=== PATIENT | female | born 1990 | race Two or more races ===

== ENCOUNTER → 2016-07-05 | Outpatient (CLI) | payer OTHER ==
--- NOTE | 2016-07-05 14:54 | US ---
EXAMINATION TYPE: US OB <= 14 wk fetus early second trimester DATE OF EXAM: 07/05/2016 2:30 PM COMPARISON: NONE CLINICAL HISTORY: Z36 Confirm Dates. unknown dates EXAM PERFORMED: Transabdominal (TA) EXAM MEASUREMENTS: GESTATIONAL AGE / DATING Physician Established: not established Dates by LMP: (15 weeks/3 days) EDC: 12/24/2016 Dates by First Scan: no prior Dates by Current Scan for: (14 weeks/2 days) EDC: 01/01/2017 MATERNAL ANATOMY Uterus: 13.0 x 7.9 x 8.8 cm Right Ovary: 2.6 x 1.4 x 1.9 cm Left Ovary: 1.8 x 1.6 x 1.6 cm Post CDS / Adnexa: wnl Presence of free fluid: no Presence of corpus luteal cyst: no Presence of subchorionic bleed: no BPD:2.7 cm??? 14 weeks /5days FL:1.6 cm? 14weeks/4days GESTATION / SURVEY CRL: 7.6 (13 weeks/5 days) Heart Rate: 157 bpm Rhythm: Normal IUP: Viable IUP Date of LMP: 03/19/2016 TECHNOLOGIST IMPRESSION: viable IUP,1st scan for EDC Single live intrauterine gestation is confirmed as gestational sac and pole are identified. Yol k sac is not clearly evident. There is no free fluid seen in pelvic cul-de-sac. Both ovaries are seen. No suspicious extraovarian adnexal masses are noted. IMPRESSION: Single live intrauterine gestation is confirmed, mean crown-rump length is 7.6 cm corresponding to 13 weeks 5 day old fetus.
[2016-07-05 15:18] LABS: CH 32.5; CHCM 35.5; HCT 37.3 % (34.0-46.0); HDW 2.64; HGB 12.7 gm/dL (11.4-16.0); MCH 31.3 pg (25.0-35.0); Mean Platelet Volume 7.1; RBC 4.06 m/uL (3.80-5.40); RDW 12.7 % (11.5-15.5); WBC 10.5 k/uL (3.8-10.6)
[2016-07-05 15:30] LABS: Glucose 79 mg/dL (74-99); Non-African American GFR(MDRD) >60 (>60 ml/min/1.73 sqM)
[2016-07-05 16:01] LABS: Hepatitis B Surface Ag Index 0.08
== END | disposition home or self-care (01) ==
LOC: RADUSWWP 14:05
PROVIDERS: ATTEND Obstetrics & Gynecology
DX: Z36 Encounter for antenatal screening of mother (principal); Z3A.14 14 weeks gestation of pregnancy
CPT/HCPCS: 36415; 76801; 82565; 82947; 85027; 86762; 86780; 86850; 86900; 86901; 87340

== ENCOUNTER → 2016-08-09 | Outpatient (CLI) | payer OTHER ==
--- NOTE | 2016-08-10 10:59 | US ---
EXAMINATION TYPE: US OB anatomy transabd DATE OF EXAM: 08/09/2016 5:03 PM COMPARISON: Previous study dated 07/05/2016. HISTORY: O36.62X0 Large for dates second trimester lga TECHNIQUE: Transabdominal (TA) EXAM MEASUREMENTS: GESTATIONAL AGE / DATING Physician Established: (19 weeks/3 days) EDC: 01/01/2017 Dates by LMP: (20 weeks/3 days) EDC: 12/24/2016 Dates by First Scan: (19 weeks/3 days) EDC: 01/01/2017 Dates by Current Scan for: (19 weeks/6 days) EDC:12/27/2016 SURVEY IUP: Single PLACENTA: Anterior PREVIA: No previa PENNIE: 15.3 cm Normal CERVICAL LENGTH (transabdominal: norm > 3.0cm): 3.7 cm BIOMETRY PRESENTATION: Vertex LIE: Oblique BPD: 4.7 cm 20 weeks / 2 days HC: 17.1 cm 19 weeks / 5 days AC: 14.5 cm 19 weeks / 6 days FL: 3.1 cm 19 weeks / 5 days ESTIMATED WEIGHT IN GRAMS: 310 grams ESTIMATED WEIGHT IN LBS/OZS: 0 lbs. 11 oz. WEIGHT PERCENTAGE BASED ON ESTABLISHED DATE: 14 % HC/AC: 1.18 Normal FL/AC: 21 Normal HEART RATE: 139 bpm RHYTHM: Normal ANATOMY SEEN (within normal limits): * Cisterna Magna (< 1.1 cm) 0.5 cm * Nuchal Fold (< 0.6 cm) 0.2 cm * Cerebellum (varies with age) 1.9 cm Midline Falx Cavus Septi Pellucidi Four Chamber Heart Stomach Diaphragm Kidneys (bilateral) Bladder Cord Insert Three Vessel Cord Longitudinal Spine Transverse Spine Legs (bilateral) ANATOMY NOT SEEN: Choroid Plexus (bilateral) Lateral Vent (< 1 cm) Outflow tracts: LVOT/RVOT Situs Nose / Lips Arms (bilateral) IMPRESSION: CAGE FETUS PRESENT IN A VERTEX LIE WITH A GESTATIONAL AGE OF 19 WEEKS 6 DAYS +/- 10 DAYS. ESTIMA GIORGI DATE OF CONFINEMENT BASED ON THIS EXAMINATION IS 12/27/2016. PLEASE NOTE THAT THE ANATOMIC EXAM WAS LIMITED.
== END | disposition home or self-care (01) ==
LOC: RADUSWWP 15:50
PROVIDERS: ATTEND Obstetrics & Gynecology
DX: O36.62X0 Maternal care for excessive fetal growth, second trimester, not applicable or unspecified (principal); Z3A.19 19 weeks gestation of pregnancy
CPT/HCPCS: 76811

== ENCOUNTER → 2016-09-19 | Outpatient (CLI) | payer OTHER ==
--- NOTE | 2016-09-19 08:50 | US ---
EXAMINATION TYPE: US gallbladder DATE OF EXAM: 09/19/2016 8:36 AM COMPARISON: None. CLINICAL HISTORY: RUQ Abd Pain R10.11. Epigastric pain radiating to back EXAM MEASUREMENTS: Liver Length: 13.8 cm Gallbladder Wall: 0.1 cm CHD: 0.4 cm Right Kidney: 11.7 x 4.8 x 4.3 cm Pancreas: echogenic Liver: wnl Gallbladder: multiple mobile echogenic foci Evidence for sonographic Boyd's sign: neg CHD: wnl Right Kidney: wnl Limited views of the pancreas demonstrate echogenicity of the pancreas. This may represent fatty infi ltration. The liver is normal in size without biliary dilatation. There is evidence of cholelithiasis. Gallbladder wall measures 1 mm. Distal common hepatic duct measu res 4 mm. The right kidney is normal. The intrahepatic IVC is unremarkable. IMPRESSION: CHOLELITHIASIS.
[2016-09-19 10:24] LABS: CH 33.6; CHCM 34.3; HCT 33.1 % (34.0-46.0); HGB 11.3 gm/dL (11.4-16.0); MCH 33.5 pg (25.0-35.0); MCHC 34.1 g/dL (31.0-37.0); MCV 98.4 fL (80.0-100.0); Mean Platelet Volume 7.5; RBC 3.36 m/uL (3.80-5.40); RDW 13.4 % (11.5-15.5); WBC 10.1 k/uL (3.8-10.6)
== END | disposition home or self-care (01) ==
LOC: RADUSWWP 08:15
PROVIDERS: ATTEND Obstetrics & Gynecology
DX: K80.20 Calculus of gallbladder without cholecystitis without obstruction (principal)
CPT/HCPCS: 76705; 82950; 85027

== ENCOUNTER → 2016-10-03 | Outpatient (CLI) | payer OTHER ==
[2016-10-03 11:49] LABS: Glucose 3 Hour, Gest 136 mg/dL
== END | disposition home or self-care (01) ==
LOC: LABWHC1 07:26
PROVIDERS: ATTEND Obstetrics & Gynecology
DX: O24.419 Gestational diabetes mellitus in pregnancy, unspecified control (principal); Z3A.00 Weeks of gestation of pregnancy not specified
CPT/HCPCS: 36415; 82951; 82952

== ENCOUNTER 2017-01-02 08:33 | Inpatient (IN) | payer OTHER ==
[2017-01-02] MEDS ORDERED: CARBOPROST TROMETHAMINE 250 MCG/ML 1 ML AMP IM PRN (09:40)
[2017-01-02] MEDS ORDERED: LIDOCAINE 1% (PF) 10 MG/ML (30 ML SDV) SQ PRN (09:40)
[2017-01-02] MEDS ORDERED: METHYLERGONOVINE 0.2 MG/ML 1 ML AMP IM PRN (09:40)
[2017-01-02] MEDS ORDERED: OXYTOCIN 10 UNIT/ML 1 ML VIAL IM PRN (09:40)
[2017-01-02] MEDS ORDERED: TERBUTALINE 1 MG/ML VIAL SQ PRN (09:40)
[2017-01-02] MEDS ORDERED: LACTATED RINGERS 1,000 ML IV SCH (09:45)
[2017-01-02] MEDS ORDERED: OXYTOCIN 20 UNITS/1000 ML NS 1,000 ML IV SCH ×2 (09:45→14:00)
[2017-01-02 10:07] VITALS: BMI 25.2
[2017-01-02 11:02] LABS: Basophils % (A) 0 %; CH 33.2; CHCM 35.6; Eosinophils % (A) 0 %; HCT 37.1 % (34.0-46.0); HDW 2.47; HGB 13.1 gm/dL (11.4-16.0); Luc # (Auto) 0.17; Luc % (Auto) 2; Lymphocytes # (A) 1.4 k/uL (1.0-4.8); Lymphocytes % (A) 14 %; MCH 33.2 pg (25.0-35.0); MCHC 35.4 g/dL (31.0-37.0); MCV 93.7 fL (80.0-100.0); Mean Platelet Volume 9.7; Monocytes # (A) 0.5 k/uL (0-1.0); Monocytes % (A) 5 %; Neutrophils # (A) 7.9 k/uL (1.3-7.7); Neutrophils % (A) 79 %; RBC 3.96 m/uL (3.80-5.40); RDW 13.3 % (11.5-15.5); WBC 9.9 k/uL (3.8-10.6); WBC (Perox) 9.92
--- NOTE | 2017-01-02 12:25 | P.HPOB ---
History of Present Illness H&P Date: 01/02/17 Chief Complaint: normal labor 26 year old presents at 40 weeks 1 day in labor. HEr cervix is 3-4/90/-1 and she is rylie every 2-7 minutes. heart tones 135-140 with moderate variability and reactive. Review of Systems All systems: negative Constitutional: Denies chills, Denies fever Eyes: denies blurred vision, denies pain Ears, nose, mouth and throat: Denies headache, Denies sore throat Cardiovascular: Denies chest pain, Denies shortness of breath Respiratory: Denies cough Gastrointestinal: Denies abdominal pain, Denies diarrhea, Denies nausea, Denies vomiting Genitourinary: Denies dysuria, Denies hematuria Musculoskeletal: Denies myalgias Integumentary: Denies pruritus, Denies rash Neurological: Denies numbness, Denies weakness Psychiatric: Denies anxiety, Denies depression Endocrine: Denies fatigue, Denies weight change Past Medical History Past Medical History: No Reported History Additional Past Medical History / Comment(s): Obstetric history: This is her first and she had care with al since 13 weeks. A+, abs neg, Rub Imm, Treponemal ab neg, Hep B neg. abnormal 1hr, normal 3hr.GBS neg. History of Any Multi-Drug Resistant Organisms: None Reported Past Surgical History: No Surgical Hx Reported Past Anesthesia/Blood Transfusion Reactions: No Reported Reaction Smoking Status: Never smoker Past Alcohol Use History: None Reported Past Drug Use History: None Reported - Past Family History Mother Family Medical History: No Reported History Medications and Allergies Home Medications Medication Instructions Recorded Confirmed Type Pnv,Calcium 72/Iron/Folic Acid 1 tab PO DAILY 01/02/17 01/02/17 History [ Plus Tablet] Allergies Allergy/AdvReac Type Severity Reaction Status Date / Time No Known Allergies Allergy Verified 01/02/17 08:40 Exam Osteopathic Statement: *. No significant issues noted on an osteopathic structural exam other than those noted in the History and Physical/Consult. - Vital Signs Vital signs: Vital Signs Temp Pulse Resp BP 01/02/17 09:42 96.6 F L 75 20 135/86 Intake and Output 01/01/17 01/02/17 01/02/17 22:59 06:59 14:59 Other: Weight 68.946 kg Patient Weight 01/03/17 06:59 Weight 68.946 kg Heart: RRR Lungs: CTAB Abdomen: soft, nontender Extremeties: neg paul's Results Result Diagrams: 01/02/17 09:40 Abnormal Lab Results - Last 24 Hours (Table) 01/02/17 Range/Units 09:40 Neutrophils # 7.9 H (1.3-7.7) k/uL Assessment and Plan (1) Normal labor Status: Acute Plan: 1. admit to family 2. anticipate normal vaginal delivery
--- NOTE | 2017-01-02 12:26 | P.MSEPDOC ---
Presenting Problems - Arrival Data Date of Arrival on Unit: 01/02/17 Time of Arrival on Unit: 08:34 Mode of Transport: Ambulatory - Complaint OB-Reason for Admission/Chief Complaint: Possible Onset of Labor Medical History - Information : 1 Para: 0 Term: 0 : 0 Abortions: Spontaneous or Elective: 0 Number of Living Children: 0 - Gestational Age Expected Date of Delivery: 01/03/17 Gestational Age by HAI (wks/days): 39 Weeks and 6 Days Review of Systems - Review of Systems Constitutional: No problems Breast: No problems ENT: No problems Cardiovascular: No problems Respiratory: No problems Gastrointestinal: No problems Genitourinary: No problems Musculoskeletal: No problems Neurological: No problems Skin: No problems Vital Signs - Temperature Temperature: 96.6 F Temperature Source: Temporal Artery Scan - Pulse Right Sitting Brachial Pulse Rate: 75 Pulse Assessment Method: Palpation - Respirations Respiratory Rate: 20 Oxygen Delivery Method: Room Air - Blood Pressure Right Arm Supine Blood Pressure: 135/86 Blood Pressure Mean: 102 Blood Pressure Source: Automatic Cuff Medical Screen Scoring (Pre) - Cervical Exam Dilation: 1-3 cm = 1 Effacement: More than 50% = 2 Membranes: Intact - Uterine Contractions Frequency: > 5 minutes apart = 1 - Maternal Vital Signs Maternal Temperature: N/A Maternal Blood Pressure: N/A Signs of Preeclampsia: N/A Maternal Respirations: N/A - Maternal Trauma Maternal Trauma: N/A - Assessment Baseline FHR: 125 Heart Rate - NICHD Category: Category I (Normal) = 0 NST: Reactive - Total Score Total Score (Pre): 4 - Level of Risk Level of Risk: Low (0-5) Physician Notification (Pre) - Physician Notified Physician Notified Date: 01/02/17 Physician Notified Time: 09:15 Physician/Practitioner Notifed:: Sorin Spoke With: Sorin New Order Received: Yes - Notification Comment Comment: Admit for labor Disposition - Disposition OB Disposition: Admit Transferred to:: suite 13 I agree with the RN Medical Screening Exam: Yes Risk & Benefit of care provided described in d/c instruction: Yes Diagnosis: ENCOUNTER FOR FULL-TERM UNCOMPLICATED DELIVERY
[2017-01-02] MEDS ORDERED: IBUPROFEN 600 MG TAB PO PRN (13:59)
[2017-01-02] MEDS ORDERED: BENZOCAINE/MENTHOL SPRAY 1 GM/SPRAY AEROSOL TOPICAL PRN (13:59)
[2017-01-02] MEDS ORDERED: diphenhydrAMINE 25 MG CAP PO PRN (13:59)
[2017-01-02] MEDS ORDERED: diphenhydrAMINE 50 MG CAP PO PRN (13:59)
[2017-01-02] MEDS ORDERED: ACETAMINOPHEN TAB 325 MG TAB PO PRN (13:59)
[2017-01-02] MEDS ORDERED: LANOLIN CREAM 5 GM TUBE TOPICAL PRN (13:59)
[2017-01-02] MEDS ORDERED: diphenhydrAMINE 50 MG/ML 1 ML VIAL IVP PRN ×2 (13:59)
[2017-01-02] MEDS ORDERED: WITCH HAZEL 1 EACH MED..PAD TOPICAL PRN (13:59)
[2017-01-02] MEDS ORDERED: ZOLPIDEM 5 MG TAB PO PRN (13:59)
[2017-01-02] MEDS ORDERED: SIMETHICONE 80 MG CHEWABLE PO PRN (13:59)
[2017-01-02] MEDS ORDERED: Acetaminophen-Codeine 300-30mg TAB PO PRN ×2 (13:59)
[2017-01-02] MEDS ORDERED: HYDROCORTISONE 2.5% RECTAL CREAM 30 GM TUBE RECTAL PRN (13:59)
[2017-01-02] MEDS: SENNOSIDES-DOCUSATE SODIUM 1 EACH TAB PO SCH (21:21)
[2017-01-03] MEDS: SENNOSIDES-DOCUSATE SODIUM 1 EACH TAB PO SCH (08:23)
--- NOTE | 2017-01-03 09:13 | P.PROBDLV ---
Vaginal Delivery Note - . Vaginal Delivery Note: 26-year-old presents at 40 weeks and 1 day in active labor. Her cervix is 3-4 centers dilated, 90% effaced, -2 station. She is rylie every 2-7 minutes. heart tones are 140-145 with moderate variability and reactive. Pitocin augmentation was started. Amniotomy performed at 1207, clear fluid noted. Her cervix was completely dilated at 1329. She pushed, delivered a viable female over intact perineum at 1342. Head delivered OA, anterior shoulder delivered gentle downward traction followed by posterior shoulder and rest of body. Nose and mouth bulb suctioned, cord clamped and cut, infant placed on mother's abdomen. Apgars 9, 9, weight 7 lbs. 4 oz. Placenta delivered spontaneously, intact with three-vessel cord at 1345. Vagina, cervix , perineum inspected. Second-degree midline laceration repaired with 3-0 Vicryl. Estimated blood loss 250 mL. Mother and baby in stable condition.
--- NOTE | 2017-01-03 09:15 | P.DS ---
Providers Date of admission: 01/02/17 09:30 Expected date of discharge: 01/03/17 Attending physician: Brigette Rowell - Discharge Diagnosis(es) (1) Normal labor Current Visit: Yes Status: Resolved (2) Normal vaginal delivery Current Visit: Yes Status: Acute Hospital Course: Patient presented and in active labor. She underwent a normal vaginal delivery. She had an uncomplicated course. She'll be discharged home day #1 in stable condition to follow-up with me in 6 weeks. Plan - Discharge Summary New Discharge Prescriptions: New Ibuprofen [Motrin] 600 mg PO Q6HR PRN #30 tab PRN Reason: Mild Pain Or Fever >= 100.5 No Action Pnv,Calcium 72/Iron/Folic Acid [ Plus Tablet] 1 tab PO DAILY Discharge Medication List Pnv,Calcium 72/Iron/Folic Acid [ Plus Tablet] 1 tab PO DAILY 01/02/17 [ History] Ibuprofen [Motrin] 600 mg PO Q6HR PRN #30 tab 01/03/17 [Rx] Follow up Appointment(s)/Referral(s): Brigette Rowell DO [Doctor of Osteopathic Medicine] - 6 Weeks Discharge Disposition: HOME SELF-CARE
[2017-01-03 09:21] VITALS: BP 114/62; PULSE 87; RESP 16; TEMP 98.1
== END 2017-01-03 14:50 | disposition home or self-care (01) | DRG 775 ==
LOC: FBPOP 08:33 → 4FBP 09:30
PROVIDERS: ADMIT Obstetrics & Gynecology; ATTEND Obstetrics & Gynecology
PROC: 10907ZC Drainage of Amniotic Fluid, Therapeutic from Products of Conception, Via Natural or Artificial Opening (ICD-10-PCS; principal; 2017-01-02)
PROC: 10E0XZZ Delivery of Products of Conception, External Approach (ICD-10-PCS; 2017-01-02)
PROC: 0KQM0ZZ Repair Perineum Muscle, Open Approach (ICD-10-PCS; 2017-01-02)
DX: O48.0 Post-term pregnancy (principal); O70.1 Second degree perineal laceration during delivery; Z3A.40 40 weeks gestation of pregnancy; Z37.0 Single live birth
CPT/HCPCS: 59025; 85025; 88307; 99213

== ENCOUNTER 2017-01-20 15:35 | Inpatient (IN) | payer OTHER ==
[2017-01-20] MEDS ORDERED: SODIUM CHLORIDE 0.9% 500 ML IV STA (15:58)
[2017-01-20] MEDS ORDERED: MAG HYDROX/AL HYDROX/SIMETH 30 ML, HYOSCYAMINE ELIXIR 10 ML, CIMETIDINE HCL 300 MG PO STA ×3 (15:58)
[2017-01-20 16:22] LABS: Basophils % (A) 0 %; CH 34.1; CHCM 35.3; Eosinophils # (A) 0.1 k/uL (0-0.7); Eosinophils % (A) 1 %; HCT 38.4 % (34.0-46.0); HDW 2.98; HGB 12.8 gm/dL (11.4-16.0); Luc # (Auto) 0.08; Luc % (Auto) 1; Lymphocytes # (A) 0.9 k/uL (1.0-4.8); Lymphocytes % (A) 9 %; MCH 32.5 pg (25.0-35.0); MCHC 33.4 g/dL (31.0-37.0); MCV 97.2 fL (80.0-100.0); Mean Platelet Volume 7.7; Monocytes # (A) 0.3 k/uL (0-1.0); Monocytes % (A) 4 %; Neutrophils # (A) 8.1 k/uL (1.3-7.7); Neutrophils % (A) 86 %; RBC 3.95 m/uL (3.80-5.40); RDW 14.1 % (11.5-15.5); WBC 9.5 k/uL (3.8-10.6)
--- NOTE | 2017-01-20 16:28 | ED ---
Abdominal Pain HPI <Fabien Tidwell - Last Filed: 01/20/17 18:48> - General Source: patient, RN notes reviewed Mode of arrival: ambulatory Limitations: no limitations <Jonathan Ortiz - Last Filed: 01/20/17 18:51> - General Chief Complaint: Abdominal Pain Stated Complaint: Abd Pain Time Seen by Provider: 01/20/17 15:44 - History of Present Illness Initial Comments: this a 26-year-old female presents emergency Department with chief complaint of abdominal pain. Patient states the pain sstarted this morning. Patient states she has right upper to mid abdominal pain states radiates to her shoulder. Patient states she's been diagnosed with gallstones in the past. She states that she is 2 weeks . Denies any increased vaginal bleeding or vaginal discharge. Denies any dysuria or hematuria. She states that she has some nausea no vomiting. She did have heartburn throughout her but states that has improved since delivering. (Jonathan Ortiz) - Related Data Home Medications Medication Instructions Recorded Confirmed Vtx-Ljah-Stzkc Acid 1 cap PO HS 01/20/17 01/20/17 [-U Capsule (formulary)] Allergies Allergy/AdvReac Type Severity Reaction Status Date / Time No Known Allergies Allergy Verified 01/20/17 16:07 Review of Systems ROS Other: All systems not noted in ROS Statement are negative. <Fabien Tidwell - Last Filed: 01/20/17 18:48> ROS Other: All systems not noted in ROS Statement are negative. <Jonathan Ortiz - Last Filed: 01/20/17 18:51> ROS Statement: Those systems with pertinent positive or pertinent negative responses have been documented in the HPI. Past Medical History Past Medical History: No Reported History Additional Past Medical History / Comment(s): Obstetric history: This is her first and she had care with me since 13 weeks. A+, abs neg, Rub Imm, Treponemal ab neg, Hep B neg. abnormal 1hr, normal 3hr.GBS neg. History of Any Multi-Drug Resistant Organisms: None Reported Past Surgical History: No Surgical Hx Reported Past Anesthesia/Blood Transfusion Reactions: No Reported Reaction Past Psychological History: No Psychological Hx Reported Smoking Status: Never smoker Past Alcohol Use History: None Reported Past Drug Use History: None Reported - Past Family History Mother Family Medical History: No Reported History <Jonathan Ortiz - Last Filed: 01/20/17 18:51> General Exam Limitations: no limitations General appearance: alert, in no apparent distress Head exam: Present: atraumatic, normocephalic, normal inspection Respiratory exam: Present: normal lung sounds bilaterally. Absent: respiratory distress, wheezes, rales, rhonchi, stridor Cardiovascular Exam: Present: regular rate, normal rhythm, normal heart sounds. Absent: systolic murmur, diastolic murmur, rubs, gallop, clicks GI/Abdominal exam: Present: soft, tenderness (mild epigastric, right upper quadrant tenderness), normal bowel sounds. Absent: distended, guarding, rebound , rigid Back exam: Absent: CVA tenderness (R), CVA tenderness (L) Neurological exam: Present: alert, oriented X3, CN II-XII intact Skin exam: Present: warm, dry, intact, normal color. Absent: rash <Jonathan Ortiz Elvis - Last Filed: 01/20/17 18:51> Medical Decision Making - Lab Data Result diagrams: 01/20/17 16:09 01/20/17 16:09 <Fabien Tidwell - Last Filed: 01/20/17 18:48> - Lab Data Result diagrams: 01/20/17 16:09 01/20/17 16:09 <AngelJonathan Elvis - Last Filed: 01/20/17 18:51> - Medical Decision Making Case discussed with Dr. Manzano, who will admit for Dr. Smalls. Consult for Dr. Forte. (Fabien Tidwell) - Lab Data Lab Results 01/20/17 01/20/17 01/20/17 Range/Units 16:09 16:09 16:09 WBC 9.5 (3.8-10.6) k/uL RBC 3.95 (3.80-5.40) m/uL Hgb 12.8 (11.4-16.0) gm/dL Hct 38.4 (34.0-46.0) % MCV 97.2 (80.0-100.0) fL MCH 32.5 (25.0-35.0) pg MCHC 33.4 (31.0-37.0) g/dL RDW 14.1 (11.5-15.5) % Plt Count 275 (150-450) k/uL Neutrophils % 86 % Lymphocytes % 9 % Monocytes % 4 % Eosinophils % 1 % Basophils % 0 % Neutrophils # 8.1 H (1.3-7.7) k/uL Lymphocytes # 0.9 L (1.0-4.8) k/uL Monocytes # 0.3 (0-1.0) k/uL Eosinophils # 0.1 (0-0.7) k/uL Basophils # 0.0 (0-0.2) k/uL Sodium 142 (137-145) mmol/L Potassium 3.9 (3.5-5.1) mmol/L Chloride 106 (98-107) mmol/L Carbon Dioxide 25 (22-30) mmol/L Anion Gap 11 mmol/L BUN 9 (7-17) mg/dL Creatinine 0.70 (0.52-1.04) mg/dL Est GFR (MDRD) Af Amer >60 (>60 ml/min/1.73 sqM) Est GFR (MDRD) Non-Af >60 (>60 ml/min/1.73 sqM) Glucose 98 (74-99) mg/dL Calcium 9.4 (8.4-10.2) mg/dL Total Bilirubin 0.7 (0.2-1.3) mg/dL AST 116 H (14-36) U/L ALT 77 H (9-52) U/L Alkaline Phosphatase 108 (38-126) U/L Total Protein 7.1 (6.3-8.2) g/dL Albumin 4.2 (3.5-5.0) g/dL Amylase 155 H (30-110) U/L Lipase 866 H (23-300) U/L Urine Color Yellow Urine Appearance Clear (Clear) Urine pH 6.0 (5.0-8.0) Ur Specific [place] 1.021 (1.001-1.035) Urine Protein Trace H (Negative) Urine Glucose (UA) Negative (Negative) Urine Ketones Negative (Negative) Urine Blood Small H (Negative) Urine Nitrite Negative (Negative) Urine Bilirubin Negative (Negative) Urine Urobilinogen 3.0 (<2.0) mg/dL Ur Leukocyte Esterase Large H (Negative) Urine RBC 8 H (0-5) /hpf Urine WBC 23 H (0-5) /hpf Ur Squamous Epith Cells <1 (0-4) /hpf Urine Mucus Rare H (None) /hpf Disposition <Fabien Tidwell - Last Filed: 01/20/17 18:48> <Jonathan Ortiz - Last Filed: 01/20/17 18:51> Clinical Impression: UTI (urinary tract infection), Choledocholithiasis, Pancreatitis Disposition: ADMITTED IP TO THIS HOSP Condition: Fair Referrals: Win Mclaughlin DO [Primary Care Provider] - 1-2 days
[2017-01-20 16:29] LABS: Appearance,Urine Clear (Clear); Bilirubin,Urine Negative (Negative); Glucose,Urine (UA) Negative (Negative); Ketones,Urine Negative (Negative); Leukocyte Esterase,Urine Large (Negative); Mucus,Urine Rare /hpf; Nitrite,Urine Negative (Negative); Particle Count 2859; Protein,Urine Trace (Negative); RBC,Urine 8 /hpf (0-5); Specific Gravity,Urine 1.021 (1.001-1.035); Squamous Epithelial Cell,Urine <1 /hpf (0-4); UA Billing (MACRO vs. MICRO) MICRO; WBC,Urine 23 /hpf (0-5)
[2017-01-20 16:32] LABS: AST 116 U/L (14-36); Anion Gap 11 mmol/L; Blood Urea Nitrogen 9 mg/dL (7-17); Calcium 9.4 mg/dL (8.4-10.2); Carbon Dioxide 25 mmol/L (22-30); Chloride 106 mmol/L (98-107); Glucose 98 mg/dL (74-99); Non-African American GFR(MDRD) >60 (>60 ml/min/1.73 sqM); Potassium 3.9 mmol/L (3.5-5.1); Sodium 142 mmol/L (137-145); Total Bilirubin 0.7 mg/dL (0.2-1.3); Total Protein 7.1 g/dL (6.3-8.2)
[2017-01-20 16:33] LABS: ALT 77 U/L (9-52); Alkaline Phosphatase 108 U/L (38-126); Amylase 155 U/L (30-110)
--- NOTE | 2017-01-20 16:47 | XR ---
EXAMINATION TYPE: XR KUB DATE OF EXAM: 01/20/2017 COMPARISON: NONE HISTORY: Abdominal pain TECHNIQUE: 2 views FINDINGS: There is no sign of intestinal obstruction or pneumoperitoneum. Fecal pattern is normal. Th ere are no pathologic calcifications. Lung bases are clear. There is no sign of a mass. Bony structur es appear normal. IMPRESSION: Nonacute abdomen.
--- NOTE | 2017-01-20 18:20 | US ---
EXAMINATION TYPE: US abdomen limited DATE OF EXAM: 01/20/2017 COMPARISON: US CLINICAL HISTORY: Pain. EXAM MEASUREMENTS: Liver Length: 12.8 cm Gallbladder Wall: 0.3 cm CBD: 0.4 cm Right Kidney: 12.2 x 4.8 x 4.0 cm Pancreas: partially obscured by bowel gas Liver: wnl Gallbladder:cholethiasis Evidence for sonographic Boyd's sign: No CBD: wnl Right Kidney: wnl IMPRESSION: Numerous gallstones. No dilated ducts. No focal liver defect.
[2017-01-20] MEDS ORDERED: PIPERACILLIN-TAZOBACTAM 3.375 GM in DEXTROSE/WATER 1 50ML.BAG IVPB STA (18:50)
[2017-01-20] MEDS ORDERED: NALOXONE 0.4 MG/ML 1 ML VIAL IV PRN (18:52)
[2017-01-20] MEDS ORDERED: ONDANSETRON 4 MG/2 ML VIAL IVP PRN (18:52)
[2017-01-20] MEDS ORDERED: HYDROcodone/APAP 5-325MG 1 EACH TAB PO PRN (18:52)
[2017-01-20] MEDS ORDERED: SODIUM CHLORIDE 0.9% 1,000 ML IV SCH (19:00)
[2017-01-20 21:06] VITALS: BMI 21.4
[2017-01-21] MEDS: PIPERACILLIN-TAZOBACTAM 3.375 GM in DEXTROSE/WATER 1 50ML.BAG IVPB SCH ×3 (00:49→17:07)
[2017-01-21 07:34] LABS: Cholesterol 176 mg/dL (<200); HDL Cholesterol 46 mg/dL (40-60)
[2017-01-21] MEDS: SODIUM CHLORIDE 0.9% 1,000 ML IV SCH ×2 (15:06→22:24)
[2017-01-21] MEDS: PANTOPRAZOLE 40 MG/10 ML VIAL IVP SCH ×2 (15:13→22:20)
--- NOTE | 2017-01-21 15:36 | P.GSCN ---
History of Present Illness Consult date: 01/21/17 Reason for Consult: Gallstone pancreatitis History of present illness: Patient is admitted to the hospital with abdominal pain. Pain was in the midepigastric region with radiation of back and shoulders. She had a history of a similar event in August of this year. She was told in the past that she has gallstones. No nausea or vomiting. Pain is since resolved. Her ALT and AST are elevated in addition to her amylase and lipase. These labs were not repeated today. An ultrasound showed gallstones without biliary dilation. No change in the color of her skin urine or stool. She is hungry. She just delivered a baby 2-3 weeks ago. Denies rectal bleeding or melena. Review of Systems The patient denies any acute changes in vision or hearing, no dysphagia or odynophagia, no chest pain or shortness of breath, no dysuria or hematuria, no headache, no runny nose, no rectal bleeding or melena, no unexplained weight loss Past Medical History Past Medical History: No Reported History Additional Past Medical History / Comment(s): Obstetric history: This is her first and she had care with ia since 13 weeks. A+, abs neg, Rub Imm, Treponemal ab neg, Hep B neg. abnormal 1hr, normal 3hr.GBS neg. History of Any Multi-Drug Resistant Organisms: None Reported Past Surgical History: No Surgical Hx Reported Past Anesthesia/Blood Transfusion Reactions: No Reported Reaction Past Psychological History: No Psychological Hx Reported Smoking Status: Never smoker Past Alcohol Use History: None Reported Past Drug Use History: None Reported - Past Family History Mother Family Medical History: No Reported History Medications and Allergies Home Medications Medication Instructions Recorded Confirmed Type Bnr-Aeho-Woaop Acid 1 cap PO HS 01/20/17 01/20/17 History [-U Capsule (formulary)] Allergies Allergy/AdvReac Type Severity Reaction Status Date / Time No Known Allergies Allergy Verified 01/20/17 21:07 Surgical - Exam Vital Signs Temp Pulse Resp BP Pulse Ox 97.8 F 73 18 131/75 99 01/20/17 15:38 01/20/17 15:38 01/20/17 15:38 01/20/17 15:38 01/20/17 15:38 Physical exam: General: Well-developed, well-nourished HEENT: Normocephalic, sclerae nonicteric Abdomen: Nontender, nondistended Extremities: No edema Neuro: Alert and oriented Results - Labs 01/20/17 16:09 01/20/17 16:09 Abnormal Lab Results - Last 24 Hours (Table) 01/20/17 01/20/17 01/20/17 Range/Units 16:09 16:09 16:09 Neutrophils # 8.1 H (1.3-7.7) k/uL Lymphocytes # 0.9 L (1.0-4.8) k/uL AST 116 H (14-36) U/L ALT 77 H (9-52) U/L Triglycerides (<150) mg/dL Amylase 155 H (30-110) U/L Lipase 866 H (23-300) U/L Urine Protein Trace H (Negative) Urine Blood Small H (Negative) Ur Leukocyte Esterase Large H (Negative) Urine RBC 8 H (0-5) /hpf Urine WBC 23 H (0-5) /hpf Urine Mucus Rare H (None) /hpf 01/21/17 Range/Units 06:53 Neutrophils # (1.3-7.7) k/uL Lymphocytes # (1.0-4.8) k/uL AST (14-36) U/L ALT (9-52) U/L Triglycerides 170 H (<150) mg/dL Amylase (30-110) U/L Lipase (23-300) U/L Urine Protein (Negative) Urine Blood (Negative) Ur Leukocyte Esterase (Negative) Urine RBC (0-5) /hpf Urine WBC (0-5) /hpf Urine Mucus (None) /hpf Microbiology - Last 24 Hours (Table) 01/20/17 16:09 Urine Culture - Preliminary Urine,Clean Catch Diabetes panel 01/20/17 01/21/17 Range/Units 16:09 06:53 Sodium 142 (137-145) mmol/L Potassium 3.9 (3.5-5.1) mmol/L Chloride 106 (98-107) mmol/L Carbon Dioxide 25 (22-30) mmol/L BUN 9 (7-17) mg/dL Creatinine 0.70 (0.52-1.04) mg/dL Glucose 98 (74-99) mg/dL Calcium 9.4 (8.4-10.2) mg/dL AST 116 H (14-36) U/L ALT 77 H (9-52) U/L Alkaline Phosphatase 108 (38-126) U/L Total Protein 7.1 (6.3-8.2) g/dL Albumin 4.2 (3.5-5.0) g/dL Triglycerides 170 H (<150) mg/dL HDL Cholesterol 46 (40-60) mg/dL Calcium panel 01/20/17 Range/Units 16:09 Calcium 9.4 (8.4-10.2) mg/dL Albumin 4.2 (3.5-5.0) g/dL Pituitary panel 01/20/17 Range/Units 16:09 Sodium 142 (137-145) mmol/L Potassium 3.9 (3.5-5.1) mmol/L Chloride 106 (98-107) mmol/L Carbon Dioxide 25 (22-30) mmol/L BUN 9 (7-17) mg/dL Creatinine 0.70 (0.52-1.04) mg/dL Glucose 98 (74-99) mg/dL Calcium 9.4 (8.4-10.2) mg/dL Adrenal panel 01/20/17 Range/Units 16:09 Sodium 142 (137-145) mmol/L Potassium 3.9 (3.5-5.1) mmol/L Chloride 106 (98-107) mmol/L Carbon Dioxide 25 (22-30) mmol/L BUN 9 (7-17) mg/dL Creatinine 0.70 (0.52-1.04) mg/dL Glucose 98 (74-99) mg/dL Calcium 9.4 (8.4-10.2) mg/dL Total Bilirubin 0.7 (0.2-1.3) mg/dL AST 116 H (14-36) U/L ALT 77 H (9-52) U/L Alkaline Phosphatase 108 (38-126) U/L Total Protein 7.1 (6.3-8.2) g/dL Albumin 4.2 (3.5-5.0) g/dL Assessment and Plan Plan: Impression: Gallstone pancreatitis next Plan: We'll repeat lab work tomorrow. Begin diet at this time. If the patient' s labs are improved we'll consider laparoscopic cholecystectomy tomorrow. Continue empiric anabiotic.
--- NOTE | 2017-01-21 15:44 | P.HPIM ---
History of Present Illness Chief Complaint: epigastric pain 26 years old female 2 weeks presents with acute abdominal pain that started yesterday involving the right upper quadrant and the epigastric area. Patient said that she had similar presentation while she was but could not undergo any surgery due to the . She had similar symptoms 2 days ago but went away by itself. She was diagnosed to have gallstones during her . Patient denies any nausea, vomiting, diarrhea or constipation. Denies any blood in stool. No change in stool, had her last bowel movement yesterday stopped she does uses Prilosec [id number] which has helped with her abdominal pain and had an ibuprofen for headache on Saturday but apart from that she is on no medication. She denies any chest pain or shortness of breath but could not to 3 due to the epigastric pain she was having. She denies any palpitation or lower extremity edema, patient denies any history of blood clots in the past Review of Systems Constitutional: Denies chills, Denies fever, Denies malaise, Denies night sweats , Denies poor appetite Eyes: denies blurred vision, denies bulging eye, denies discharge Ears: deny: ear discharge Ears, nose, mouth and throat: Denies bleeding gums, Denies headache, Denies nasal discharge Cardiovascular: Reports as per HPI, Reports shortness of breath, Denies lightheadedness, Denies orthopnea, Denies rapid heart beat Respiratory: Denies cough with sputum Gastrointestinal: Reports abdominal pain, Denies belching, Denies bloating, Denies BRBPR, Denies change in bowel habits, Denies coffee ground emesis, Denies constipation, Denies diarrhea, Denies early satiety, Denies heartburn, Denies hematochezia, Denies jaundice, Denies nausea, Denies vomiting Genitourinary: Denies flank pain, Denies kidney stones Musculoskeletal: Denies neck pain, Denies neck stiffness Integumentary: Denies dryness, Denies growths, Denies lesions Neurological: Denies headaches, Denies lack of coordination, Denies loss of vision, Denies memory loss, Denies motor disturbance, Denies numbness, Denies seizures Endocrine: Denies excessive sweating, Denies fatigue, Denies flushing, Denies heat intolerance, Denies high blood sugars Past Medical History Past Medical History: No Reported History (normal vaginal delivery 2 weeks ago ) Additional Past Medical History / Comment(s): Obstetric history: This is her first and she had care with me since 13 weeks. A+, abs neg, Rub Imm, Treponemal ab neg, Hep B neg. abnormal 1hr, normal 3hr.GBS neg. History of Any Multi-Drug Resistant Organisms: None Reported Past Surgical History: No Surgical Hx Reported Past Anesthesia/Blood Transfusion Reactions: No Reported Reaction Past Psychological History: No Psychological Hx Reported Smoking Status: Never smoker Past Alcohol Use History: None Reported Past Drug Use History: None Reported - Past Family History Mother Family Medical History: No Reported History Father Family Medical History: Hypertension (patient has 3 sibling, all doing well . Grandfather had a history of prostate cancer and grandmother with diabetes) Medications and Allergies Home Medications Medication Instructions Recorded Confirmed Type Bqr-Uwoc-Bcoxe Acid 1 cap PO HS 01/20/17 01/20/17 History [-U Capsule (formulary)] Allergies Allergy/AdvReac Type Severity Reaction Status Date / Time No Known Allergies Allergy Verified 01/20/17 21:07 Physical Exam Vitals: Vital Signs Temp Pulse Pulse Pulse Resp BP BP 01/21/17 12:04 97.7 F 57 L 20 123/79 01/21/17 08:10 98.9 F 65 20 124/75 01/21/17 00:49 98.6 F 62 14 116/71 01/20/17 20:45 97.7 F 57 L 20 130/75 01/20/17 19:14 97.8 F 60 18 126/78 01/20/17 19:06 60 18 126/78 01/20/17 17:30 65 18 117/63 01/20/17 15:42 73 18 119/72 01/20/17 15:38 97.8 F 73 18 131/75 Pulse Ox 01/21/17 12:04 99 01/21/17 08:10 99 01/21/17 00:49 98 01/20/17 20:45 100 01/20/17 19:14 98 01/20/17 19:06 98 01/20/17 17:30 99 01/20/17 15:42 97 01/20/17 15:38 99 Intake and Output 01/21/17 01/21/17 01/21/17 06:59 14:59 22:59 Other: # Voids 1 2 - Constitutional General appearance: average body habitus, cooperative - EENT Eyes: no abnormal pupil, PERRLA, no photophobia, no ptosis Ears: bilateral: normal - Neck Neck: no lymphadenopathy, no normal ROM Carotids: bilateral: upstroke normal Thyroid: negative: normal size - Respiratory Respiratory: bilateral: CTA, negative: rhonchi, wheezing - Cardiovascular Rhythm: regular Heart sounds: normal: S1, S2 Abnormal Heart Sounds: no systolic murmur, no diastolic murmur - Gastrointestinal General gastrointestinal: normal bowel sounds, no organomegaly, soft, no splenomegaly, tenderness Localized gastrointestinal: tender: RUQ, epigastric periumbilical - Integumentary Integumentary: no calor, no cellulitis, no cyanotic - Neurologic Neurologic: CNII-XII intact - Musculoskeletal Musculoskeletal: gait normal - Psychiatric Psychiatric: A&O x's 3, appropriate affect (he) Results CBC & Chem 7: 01/20/17 16:09 01/20/17 16:09 Labs: Abnormal Lab Results - Last 24 Hours (Table) 01/20/17 01/20/17 01/20/17 Range/Units 16:09 16:09 16:09 Neutrophils # 8.1 H (1.3-7.7) k/uL Lymphocytes # 0.9 L (1.0-4.8) k/uL AST 116 H (14-36) U/L ALT 77 H (9-52) U/L Triglycerides (<150) mg/dL Amylase 155 H (30-110) U/L Lipase 866 H (23-300) U/L Urine Protein Trace H (Negative) Urine Blood Small H (Negative) Ur Leukocyte Esterase Large H (Negative) Urine RBC 8 H (0-5) /hpf Urine WBC 23 H (0-5) /hpf Urine Mucus Rare H (None) /hpf 01/21/17 Range/Units 06:53 Neutrophils # (1.3-7.7) k/uL Lymphocytes # (1.0-4.8) k/uL AST (14-36) U/L ALT (9-52) U/L Triglycerides 170 H (<150) mg/dL Amylase (30-110) U/L Lipase (23-300) U/L Urine Protein (Negative) Urine Blood (Negative) Ur Leukocyte Esterase (Negative) Urine RBC (0-5) /hpf Urine WBC (0-5) /hpf Urine Mucus (None) /hpf Microbiology - Last 24 Hours (Table) 01/20/17 16:09 Urine Culture - Preliminary Urine,Clean Catch Thrombosis Risk Factor Assmnt - Choose All That Apply Any of the Below Risk Factors Present?: Yes Each Factor Represents 1 point: or Other Risk Factors: No Other congenital or acquired thrombophilia - If yes, enter type in comment: No Thrombosis Risk Factor Assessment Total Risk Factor Score: 1 Thrombosis Risk Factor Assessment Level: Low Risk Assessment and Plan Plan: 26 years old female with no significant past medical history 2 weeks presents with epigastric pain concerning for acute pancreatitis secondary to choledocholithiasis 1. Acute pancreatitis secondary to choledocholithiasis - Ultrasound suggestive of choledocholithiasis - Keep nothing by mouth - Continue fluid at 1 25 mL per hour - Avoid ibuprofen for concern of acute gastritis - Continue Protonix 40 mg twice a day a day - Surgery consult for possible cholecystectomy while patient is in the hospital - Repeat lipase in a.m. - We will start patient on clear liquid diet - Continue empiric antibiotics with Zosyn 2. GI prophylaxis - Protonix 40 mg twice daily 3. DVT prophylaxis- continue mechanical prophylaxis with GIORGI hose
[2017-01-21] MEDS: PRENATAL VIT-IRON-FOLIC ACID 1 EACH CAP PO SCH (22:20)
[2017-01-22] MEDS: PIPERACILLIN-TAZOBACTAM 3.375 GM in DEXTROSE/WATER 1 50ML.BAG IVPB SCH ×3 (00:22→15:48)
[2017-01-22] MEDS: SODIUM CHLORIDE 0.9% 1,000 ML IV SCH ×5 (06:08→20:47)
[2017-01-22 08:17] LABS: ALT 66 U/L (9-52); AST 32 U/L (14-36); Alkaline Phosphatase 95 U/L (38-126); Amylase 208 U/L (30-110); Anion Gap 9 mmol/L; Blood Urea Nitrogen 4 mg/dL (7-17); Calcium 8.7 mg/dL (8.4-10.2); Carbon Dioxide 27 mmol/L (22-30); Chloride 107 mmol/L (98-107); Glucose 88 mg/dL (74-99); Non-African American GFR(MDRD) >60 (>60 ml/min/1.73 sqM); Potassium 3.5 mmol/L (3.5-5.1); Sodium 143 mmol/L (137-145); Total Bilirubin 0.7 mg/dL (0.2-1.3); Total Protein 6.3 g/dL (6.3-8.2)
[2017-01-22 08:30] LABS: Basophils % (A) 1 %; CH 32.9; CHCM 34.1; Eosinophils # (A) 0.1 k/uL (0-0.7); Eosinophils % (A) 3 %; HDW 3.03; HGB 12.8 gm/dL (11.4-16.0); Luc % (Auto) 2; Lymphocytes # (A) 1.7 k/uL (1.0-4.8); Lymphocytes % (A) 34 %; MCH 33.6 pg (25.0-35.0); MCHC 34.7 g/dL (31.0-37.0); MCV 96.9 fL (80.0-100.0); Mean Platelet Volume 6.9; Monocytes # (A) 0.3 k/uL (0-1.0); Monocytes % (A) 6 %; Neutrophils # (A) 2.7 k/uL (1.3-7.7); Neutrophils % (A) 55 %; RBC 3.83 m/uL (3.80-5.40); RDW 13.5 % (11.5-15.5)
[2017-01-22] MEDS: PANTOPRAZOLE 40 MG/10 ML VIAL IVP SCH ×2 (09:30→20:49)
[2017-01-22] MEDS ORDERED: SODIUM CHLORIDE 0.9% 2,000 ML IV ONE (11:17)
--- NOTE | 2017-01-22 12:44 | P.GSCN ---
History of Present Illness Consult date: 01/22/17 Reason for Consult: Cholelithiasis History of present illness: This a 18-year-old female who sees Dr. ibarra as outpatient. Patient was admitted with complaints of right upper quadrant pain H her back. Ultrasound shows evidence of cholelithiasis. Patient states that she has had some mild complaints of upper quadrant pain over the last several months. She is 3 weeks . She was worked up emergency room found evidence of a urinary tract infection. Past Medical History Past Medical History: No Reported History (normal vaginal delivery 2 weeks ago ) Additional Past Medical History / Comment(s): Obstetric history: This is her first and she had care with [facility] since 13 weeks. A+, abs neg, Rub Imm, Treponemal ab neg, Hep B neg. abnormal 1hr, normal 3hr.GBS neg. History of Any Multi-Drug Resistant Organisms: None Reported Past Surgical History: No Surgical Hx Reported Past Anesthesia/Blood Transfusion Reactions: No Reported Reaction Past Psychological History: No Psychological Hx Reported Smoking Status: Never smoker Past Alcohol Use History: None Reported Past Drug Use History: None Reported - Past Family History Mother Family Medical History: No Reported History Father Family Medical History: Hypertension (patient has 3 sibling, all doing well . Grandfather had a history of prostate cancer and grandmother with diabetes) Medications and Allergies Home Medications Medication Instructions Recorded Confirmed Type Rtc-Ehmh-Urlfk Acid 1 cap PO HS 01/20/17 01/20/17 History [-U Capsule (formulary)] Allergies Allergy/AdvReac Type Severity Reaction Status Date / Time No Known Allergies Allergy Verified 01/20/17 21:07 Surgical - Exam Vital Signs Temp Pulse Resp BP Pulse Ox 97.8 F 73 18 131/75 99 01/20/17 15:38 01/20/17 15:38 01/20/17 15:38 01/20/17 15:38 01/20/17 15:38 - General well developed, no distress - Eyes PERRL - ENT normal pinna - Neck no masses - Respiratory normal expansion - Cardiovascular Rhythm: regular - Abdomen Abdomen: soft, non tender Results - Labs 01/22/17 07:34 01/22/17 07:34 Abnormal Lab Results - Last 24 Hours (Table) 01/22/17 Range/Units 07:34 BUN 4 L (7-17) mg/dL ALT 66 H (9-52) U/L Amylase 208 H (30-110) U/L Lipase 1200 H (23-300) U/L Microbiology - Last 24 Hours (Table) 01/20/17 19:04 Blood Culture - Preliminary Blood No Growth after 24 hours 01/20/17 16:09 Urine Culture - Final Urine,Clean Catch Diabetes panel 01/22/17 Range/Units 07:34 Sodium 143 (137-145) mmol/L Potassium 3.5 (3.5-5.1) mmol/L Chloride 107 (98-107) mmol/L Carbon Dioxide 27 (22-30) mmol/L BUN 4 L (7-17) mg/dL Creatinine 0.74 (0.52-1.04) mg/dL Glucose 88 (74-99) mg/dL Calcium 8.7 (8.4-10.2) mg/dL AST 32 (14-36) U/L ALT 66 H (9-52) U/L Alkaline Phosphatase 95 (38-126) U/L Total Protein 6.3 (6.3-8.2) g/dL Albumin 3.6 (3.5-5.0) g/dL Calcium panel 01/22/17 Range/Units 07:34 Calcium 8.7 (8.4-10.2) mg/dL Albumin 3.6 (3.5-5.0) g/dL Pituitary panel 01/22/17 Range/Units 07:34 Sodium 143 (137-145) mmol/L Potassium 3.5 (3.5-5.1) mmol/L Chloride 107 (98-107) mmol/L Carbon Dioxide 27 (22-30) mmol/L BUN 4 L (7-17) mg/dL Creatinine 0.74 (0.52-1.04) mg/dL Glucose 88 (74-99) mg/dL Calcium 8.7 (8.4-10.2) mg/dL Adrenal panel 01/22/17 Range/Units 07:34 Sodium 143 (137-145) mmol/L Potassium 3.5 (3.5-5.1) mmol/L Chloride 107 (98-107) mmol/L Carbon Dioxide 27 (22-30) mmol/L BUN 4 L (7-17) mg/dL Creatinine 0.74 (0.52-1.04) mg/dL Glucose 88 (74-99) mg/dL Calcium 8.7 (8.4-10.2) mg/dL Total Bilirubin 0.7 (0.2-1.3) mg/dL AST 32 (14-36) U/L ALT 66 H (9-52) U/L Alkaline Phosphatase 95 (38-126) U/L Total Protein 6.3 (6.3-8.2) g/dL Albumin 3.6 (3.5-5.0) g/dL Assessment and Plan Plan: Cholelithiasis with history of choledocholithiasis. Patient has been treated for her urinary tract infection. She'll undergo laparoscopic cholecystectomy in the a.m.
--- NOTE | 2017-01-22 14:53 | P.PN ---
Subjective 26 years old female 2 weeks presents with acute abdominal pain that started yesterday involving the right upper quadrant and the epigastric area. Patient said that she had similar presentation while she was but could not undergo any surgery due to the . She had similar symptoms 2 days ago but went away by itself. She was diagnosed to have gallstones during her . Patient denies any nausea, vomiting, diarrhea or constipation. Denies any blood in stool. No change in stool, had her last bowel movement yesterday stopped she does uses Prilosec [id number] which has helped with her abdominal pain and had an ibuprofen for headache on Saturday but apart from that she is on no medication. She denies any chest pain or shortness of breath but could not to 3 due to the epigastric pain she was having. She denies any palpitation or lower extremity edema, patient denies any history of blood clots in the past 01/22: She has been seen by Dr. Koo and diet was started. If lab work is improved he is planning for laparoscopic cholecystectomy today. Patient is on IV antibiotics. AST is normal at 32 and ALT is 66. Triglycerides 170, cholesterol 176, LDL 96, HDL 46. Amylase has increased to 208 and lipase is increased to 1200. Dr. Koo has decided no surgery for today. Surgery consult has been changed to Dr. Berg and he is planning for surgery tomorrow. IV fluids increased and patient will be given 2 L and then 150 mL per hour. Patient denies any nausea. Objective - Vital Signs Vital signs: Vital Signs Temp 97.0 F L 01/22/17 08:35 Pulse 59 L 01/22/17 08:35 Resp 20 01/22/17 08:35 BP 142/83 01/22/17 08:35 Pulse Ox 95 01/22/17 08:35 Intake & Output 01/21/17 01/22/17 01/22/17 18:59 06:59 18:59 Intake Total 1900 Balance 1900 Intake: Intake, IV Titration 1900 Amount Sodium Chloride 0.9% 1, 1900 000 ml @ 125 mls/hr IV . Q8H ITALO Rx#:[id number] Other: # Voids 1 1 - Exam General appearance: average body habitus, cooperative - EENT Eyes: no abnormal pupil, PERRLA, no photophobia, no ptosis Ears: bilateral: normal - Neck Neck: no lymphadenopathy, no normal ROM Carotids: bilateral: upstroke normal Thyroid: negative: normal size - Respiratory Respiratory: bilateral: CTA, negative: rhonchi, wheezing - Cardiovascular Rhythm: regular Heart sounds: normal: S1, S2 Abnormal Heart Sounds: no systolic murmur, no diastolic murmur - Gastrointestinal General gastrointestinal: normal bowel sounds, no organomegaly, soft, no splenomegaly, tenderness Localized gastrointestinal: tender: RUQ, epigastric periumbilical - Integumentary Integumentary: no calor, no cellulitis, no cyanotic - Neurologic Neurologic: CNII-XII intact - Musculoskeletal Musculoskeletal: gait normal - Psychiatric Psychiatric: A&O x's 3, appropriate affect - Labs CBC & Chem 7: 01/22/17 07:34 01/22/17 07:34 Labs: Abnormal Lab Results - Last 24 Hours (Table) 01/22/17 Range/Units 07:34 BUN 4 L (7-17) mg/dL ALT 66 H (9-52) U/L Amylase 208 H (30-110) U/L Lipase 1200 H (23-300) U/L Microbiology - Last 24 Hours (Table) 01/20/17 19:04 Blood Culture - Preliminary Blood No Growth after 24 hours 01/20/17 16:09 Urine Culture - Final Urine,Clean Catch Assessment and Plan Plan: 1. Acute pancreatitis secondary to choledocholithiasis - Ultrasound suggestive of choledocholithiasis - Keep nothing by mouth - Continue fluid at 125 mL per hour - Avoid ibuprofen for concern of acute gastritis - Continue Protonix 40 mg twice a day a day - Surgery consult for possible cholecystectomy while patient is in the hospital - Repeat lipase in a.m. - We will start patient on clear liquid diet - Continue empiric antibiotics with Zosyn 2. GI prophylaxis - Protonix 40 mg twice daily 3. DVT prophylaxis- continue mechanical prophylaxis with GIORGI hose 4. Recent vaginal delivery without complications. Discharge plan: Return home Impression and plan of care have been directed as dictated by the signing physician. Roxi Haley nurse practitioner acting as scribe for signing physician.
[2017-01-22] MEDS: PRENATAL VIT-IRON-FOLIC ACID 1 EACH CAP PO SCH (20:45)
[2017-01-23] MEDS: PIPERACILLIN-TAZOBACTAM 3.375 GM in DEXTROSE/WATER 1 50ML.BAG IVPB SCH ×3 (00:05→17:12)
[2017-01-23] MEDS: SODIUM CHLORIDE 0.9% 1,000 ML IV SCH (03:09)
[2017-01-23] MEDS ORDERED: SCOPOLAMINE 1.5MG/72HR PATCH TRANSDERM ONE (05:57)
[2017-01-23] MEDS ORDERED: ONDANSETRON 4 MG/2 ML VIAL IVP ONE (05:57)
[2017-01-23] MEDS ORDERED: LACTATED RINGERS 1,000 ML IV SCH (05:57)
[2017-01-23] MEDS ORDERED: DEXAMETHASONE SOD PHOSPHATE 10 MG/ML 1 ML VIAL IV ONE (05:57)
[2017-01-23] MEDS: PANTOPRAZOLE 40 MG/10 ML VIAL IVP SCH ×2 (08:18→22:24)
[2017-01-23 12:30] LABS: ALT 42 U/L (9-52); AST 25 U/L (14-36); Alkaline Phosphatase 88 U/L (38-126); Anion Gap 10 mmol/L; Blood Urea Nitrogen 4 mg/dL (7-17); Calcium 8.6 mg/dL (8.4-10.2); Carbon Dioxide 24 mmol/L (22-30); Chloride 107 mmol/L (98-107); Glucose 92 mg/dL (74-99); Non-African American GFR(MDRD) >60 (>60 ml/min/1.73 sqM); Potassium 3.5 mmol/L (3.5-5.1); Sodium 141 mmol/L (137-145); Total Bilirubin 0.6 mg/dL (0.2-1.3); Total Protein 6.4 g/dL (6.3-8.2)
[2017-01-23 13:00] LABS: Amylase 374 U/L (30-110)
[2017-01-23] MEDS ORDERED: IV FLUID CONTINUATION 1,000 ML IV ONE ×2 (14:15→14:16)
[2017-01-23] MEDS ORDERED: IV FLUID CONTINUATION 500 ML IV ONE (14:23)
[2017-01-23] MEDS ORDERED: HEPARIN SODIUM,PORCINE 5,000 UNIT/ML 1 ML VIAL SQ ONE (14:32)
[2017-01-23] MEDS ORDERED: fentaNYL (PF) 50 MCG/ML 2 ML AMP ONE (14:48)
[2017-01-23] MEDS ORDERED: ROCURONIUM BROMIDE 10 MG/ML 10 ML VIAL IV ONE (14:48)
[2017-01-23] MEDS ORDERED: GLYCOPYRROLATE 0.2 MG/ML 2 ML VIAL ONE (14:48)
[2017-01-23] MEDS ORDERED: PROPOFOL 10 MG/ML 20 ML VIAL IV ONE (14:48)
[2017-01-23] MEDS ORDERED: NEOSTIGMINE 1 MG/ML 10 ML VIAL ONE (14:48)
[2017-01-23] MEDS ORDERED: SUCCINYLCHOLINE CHLORIDE 100 MG/5 ML SYR IV ONE (14:48)
[2017-01-23] MEDS ORDERED: MIDAZOLAM 2 MG/2 ML VIAL ONE (14:48)
[2017-01-23] MEDS ORDERED: LIDOCAINE 1% INJ 10MG/ML (20 ML MDV) ONE (14:48)
[2017-01-23] MEDS ORDERED: LACTATED RINGERS 1,000 ML IV ONE (15:07)
[2017-01-23] MEDS ORDERED: LIDOCAINE 2%-EPI 1:100,000 20 ML VIAL SQ ONE (15:13)
--- NOTE | 2017-01-23 15:45 | P.OP ---
Date of Procedure: 01/23/17 Preoperative Diagnosis: Cholelithiasis Postoperative Diagnosis: Cholelithiasis Procedure(s) Performed: Laparoscopic cholecystectomy Anesthesia: JENNIFER Surgeon: Uriah Berg Estimated Blood Loss (ml): 5 Pathology: other (Gallbladder) Condition: stable Disposition: PACU Description of Procedure: The patient was placed on the operating table. The patient received a general endotracheal tube anesthesia. The patients abdomen was prepped and draped in the usual sterile fashion. Through an infraumbilical stab incision, the fascia of the anterior abdominal wall was grasped with a pair of Kochers and then the Veress needle was placed in the peritoneal cavity. Position of the Veress needle was confirmed with positive drop test. The abdomen was then insufflated. After adequate insufflation, the 10 mm trocar was placed in the peritoneal cavity. Following this the laparoscope was placed in the peritoneal cavity. The patient was placed in the head-up, right side up position and then a 5 mm trocar was placed in the right lateral and right subcostal position under direct visualization. A 8 mm trocar was placed in the epigastric position. The gallbladder was grasped in the fundus and infundibulum. Traction on the gallbladder was placed in the lateral and the cephalad positions. The triangle of Calot was visualized.. The cystic duct was bluntly dissected until the union of the cystic duct and common bile duct was seen. The cystic duct was then divided and sealed with the Harmonic scissors. A PDS Endoloop was then placed throughout the cystic duct stump. The cystic artery divided and sealed with the Harmonic scissors. The gallbladder was then removed from the liver bed using Harmonic scissors. The gallbladder was then extracted through the epigastric port site. Operative field was checked for any bleeding spots and Harmonic scissors was used to coagulate the liver bed. The abdomen was irrigated. The trocars were removed. The skin was closed using interrupted 3-0 Vicryl suture. Dermabond dressing were applied. The patient tolerated the procedure well.
[2017-01-23] MEDS: HYDROmorphone 0.5 MG/0.5 ML SYRINGE IVP PRN ×2 (16:04→16:09)
--- NOTE | 2017-01-23 16:22 | P.DS ---
Providers Date of admission: 01/20/17 18:49 Expected date of discharge: 01/23/17 Attending physician: Sanam Manzano Consults: 01/20/17 18:52 Consult Physician Stat Consulting Provider: Allen Koo Reason/Comments: choledocholithiasis Do you want consulting provider notified?: Yes Primary care physician: [facility] Course: 26 years old female 2 weeks presents with acute abdominal pain that started yesterday involving the right upper quadrant and the epigastric area. Patient said that she had similar presentation while she was but could not undergo any surgery due to the . She had similar symptoms 2 days ago but went away by itself. She was diagnosed to have gallstones during her . Patient denies any nausea, vomiting, diarrhea or constipation. Denies any blood in stool. No change in stool, had her last bowel movement yesterday stopped she does uses Prilosec [id number] which has helped with her abdominal pain and had an ibuprofen for headache on Saturday but apart from that she is on no medication. She denies any chest pain or shortness of breath but could not to 3 due to the epigastric pain she was having. She denies any palpitation or lower extremity edema, patient denies any history of blood clots in the past 01/22: She has been seen by Dr. Koo and diet was started. If lab work is improved he is planning for laparoscopic cholecystectomy today. Patient is on IV antibiotics. AST is normal at 32 and ALT is 66. Triglycerides 170, cholesterol 176, LDL 96, HDL 46. Amylase has increased to 208 and lipase is increased to 1200. Dr. Koo has decided no surgery for today. Surgery consult has been changed to Dr. Berg and he is planning for surgery tomorrow. IV fluids increased and patient will be given 2 L and then 150 mL per hour. Patient denies any nausea. 01/23: Dr. Berg has patient scheduled for laparoscopic cholecystectomy today. Patient is requesting to go home after procedure. Patient has been cleared by Dr. Domingo for discharge. Repeat amylase this morning was 374 and lipase was 2839. Discharge diagnoses: 1. Acute pancreatitis secondary to choledocholithiasis 2. Recent normal vaginal delivery Discharge plan: Return home Impression and plan of care have been directed as dictated by the signing physician. Roxi Convery nurse practitioner acting as scribe for signing physician. Cc: Dr. Win Mclaughlin Patient Condition at Discharge: Good Plan - Discharge Summary New Discharge Prescriptions: New Docusate [Colace] 100 mg PO BID #20 capsule HYDROcodone/APAP 7.5-325MG [Mora 7.5] 1 each PO Q4H PRN #60 tab PRN Reason: Pain No Action Izm-Rwos-Oznvj Acid [-U Capsule (formulary)] 1 cap PO HS Discharge Medication List Jzs-Nhgh-Xntmi Acid [-U Capsule (formulary)] 1 cap PO HS [History] Docusate [Colace] 100 mg PO BID #20 capsule 01/23/17 [Rx] HYDROcodone/APAP 7.5-325MG [Mora 7.5] 1 each PO Q4H PRN #60 tab 01/23/17 [Rx] Follow up Appointment(s)/Referral(s): Win Mclaughlin DO [Primary Care Provider] - 1-2 days Uriah Berg MD [STAFF PHYSICIAN] - 1 Week Discharge Disposition: HOME SELF-CARE
[2017-01-23] MEDS: PRENATAL VIT-IRON-FOLIC ACID 1 EACH CAP PO SCH (22:24)
[2017-01-24] MEDS: PIPERACILLIN-TAZOBACTAM 3.375 GM in DEXTROSE/WATER 1 50ML.BAG IVPB SCH (00:25)
[2017-01-24 08:22] VITALS: BP 128/79; PULSE 90; RESP 20; TEMP 98.2
== END 2017-01-24 10:23 | disposition home or self-care (01) | DRG 769 ==
LOC: EC 15:35 → 6PED 18:49 → INTOOBSV 18:49 → OBSVTOIN 18:49
PROVIDERS: ADMIT Family Medicine; ATTEND Family Medicine
PROC: 0FT44ZZ Resection of Gallbladder, Percutaneous Endoscopic Approach (ICD-10-PCS; principal; 2017-01-23 15:50)
DX: O99.63 Diseases of the digestive system complicating the puerperium (principal); K85.10 Biliary acute pancreatitis without necrosis or infection; Z83.3 Family history of diabetes mellitus; Z82.49 Family history of ischemic heart disease and other diseases of the circulatory system
CPT/HCPCS: 36415; 74000; 76705; 80053; 80061; 81001; 81025; 82150; 83690; 85025; 87040; 87086; 88304; 96360; 99285

== ENCOUNTER → 2017-10-22 | Outpatient (CLI) | payer OTHER ==
[2017-10-22 17:38] LABS: HGB 12.5 gm/dL (11.4-16.0); MCH 32.1 pg (25.0-35.0); MCHC 35.7 g/dL (31.0-37.0); Mean Platelet Volume 7.3; Platelet Count 228 k/uL (150-450); RBC 3.89 m/uL (3.80-5.40); WBC 8.6 k/uL (3.8-10.6)
[2017-10-22 17:44] LABS: Glucose 98 mg/dL (74-99)
[2017-10-23 01:56] LABS: HIV AB P24 Non-Reactive (Non-Reactive); HIV P24 AG Non-Reactive (Non-Reactive)
--- NOTE | 2017-10-23 06:49 | US ---
EXAMINATION TYPE: US OB >= 14 wk fetus DATE OF EXAM: 10/22/2017 COMPARISON: None CLINICAL HISTORY: B36 Confirm Dates positive beta-hCG test TECHNIQUE: OBTA GESTATIONAL AGE / DATING Physician Established: Not yet established Dates by LMP: (15 weeks/2 days) EDC: 04/13/2018 Dates by First Scan: No previous this is first scan Dates by Current Scan: (14 weeks/0 days) EDC: 04/22/2018 Beta HCG (if available): not available SURVEY IUP: Single PLACENTA: Posterior PREVIA: Complete PENNIE: 10.0 cm Normal CERVICAL LENGTH (transabdominal: norm > 3.0cm): 3.3 cm BIOMETRY PRESENTATION: Variable BPD: 2.4 cm 14 weeks / 0 days HC: 9.1 cm 14 weeks / 1 days AC: 7.3 cm 13 weeks / 6 days FL: 1.3 cm 13 weeks / 5 days ESTIMATED WEIGHT IN GRAMS: 83.1 grams ESTIMATED WEIGHT IN LBS/OZ: 0 lbs. 3 oz. WEIGHT PERCENTAGE BASED ON ESTABLISHED DATES: <3% HC/AC: 1.2 Normal FL/AC: 17.1 Normal HEART RATE: 129 bpm RHYTHM: Dawn Single live intrauterine gestation is confirmed as gestational sac and pole are identified. Yol k sac is not clearly seen. Amniotic fluid index is within normal limits. There is evidence of placent a previa currently with cervical os blocked by overlying placenta. There are both presentation to fet us is seen during real-time scanning. biometry measurements are congruent and felt within dawn l limits. No cervical thinning noted. IMPRESSION: Single live intrauterine gestation is seen, biparietal diameter is 2.4 cm corresponding to 14 weeks 0 day old fetus. Placenta previa noted currently. Progress ultrasound advised.
== END | disposition home or self-care (01) ==
LOC: RADUSWWP 16:27
PROVIDERS: ATTEND Obstetrics & Gynecology
DX: O44.01 Complete placenta previa NOS or without hemorrhage, first trimester (principal); Z3A.14 14 weeks gestation of pregnancy
CPT/HCPCS: 36415; 76805; 82565; 82947; 85027; 86762; 86780; 86850; 86900; 86901; 87340; 87390

== ENCOUNTER 2018-04-15 06:00 | Inpatient (IN) | payer OTHER ==
[2018-04-15] MEDS ORDERED: OXYTOCIN 10 UNIT/ML 1 ML VIAL IM PRN (06:15)
[2018-04-15] MEDS ORDERED: LACTATED RINGERS 1,000 ML IV SCH (06:15)
[2018-04-15] MEDS ORDERED: LIDOCAINE 0.5% (PF) 5 MG/ML (50 ML SDV) SQ PRN (06:15)
[2018-04-15] MEDS ORDERED: OXYTOCIN 20 UNITS/1000 ML NS 1,000 ML IV SCH (06:15)
[2018-04-15] MEDS ORDERED: TERBUTALINE 1 MG/ML VIAL SQ PRN (06:15)
[2018-04-15] MEDS ORDERED: CARBOPROST TROMETHAMINE 250 MCG/ML 1 ML AMP IM PRN (06:15)
[2018-04-15] MEDS ORDERED: METHYLERGONOVINE 0.2 MG/ML 1 ML AMP IM PRN (06:15)
[2018-04-15] MEDS: LACTATED RINGERS 1,000 ML IV SCH ×2 (06:20→08:59)
[2018-04-15 06:22] VITALS: BMI 25.1
[2018-04-15 06:43] LABS: Basophils % (A) 0 %; Eosinophils # (A) 0.1 k/uL (0-0.7); Eosinophils % (A) 2 %; HCT 38.1 % (34.0-46.0); HGB 13.1 gm/dL (11.4-16.0); Lymphocytes # (A) 1.5 k/uL (1.0-4.8); Lymphocytes % (A) 20 %; MCH 32.6 pg (25.0-35.0); MCHC 34.3 g/dL (31.0-37.0); MCV 94.9 fL (80.0-100.0); Mean Platelet Volume 10.2; Monocytes # (A) 0.3 k/uL (0-1.0); Monocytes % (A) 4 %; Neutrophils # (A) 5.4 k/uL (1.3-7.7); Neutrophils % (A) 73 %; Platelet Count 159 k/uL (150-450); RBC 4.02 m/uL (3.80-5.40); RDW 13.3 % (11.5-15.5); WBC 7.5 k/uL (3.8-10.6)
[2018-04-15] MEDS ORDERED: SODIUM CHLORIDE 0.9% 100 ML BAG ONE (08:50)
[2018-04-15] MEDS ORDERED: ROPIVACAINE 5MG/ML 20ML VIAL ONE (08:50)
[2018-04-15] MEDS ORDERED: fentaNYL (PF) 50 MCG/ML 5 ML AMP ONE (08:50)
[2018-04-15] MEDS ORDERED: HYDROCORTISONE 2.5% RECTAL CREAM 30 GM TUBE RECTAL PRN (11:18)
[2018-04-15] MEDS ORDERED: BENZOCAINE/MENTHOL SPRAY 1 GM/SPRAY AEROSOL TOPICAL PRN (11:18)
[2018-04-15] MEDS ORDERED: WITCH HAZEL 1 EACH MED..PAD TOPICAL PRN (11:18)
[2018-04-15] MEDS ORDERED: IBUPROFEN 600 MG TAB PO PRN (11:18)
[2018-04-15] MEDS ORDERED: LANOLIN CREAM 5 GM TUBE TOPICAL PRN (11:18)
[2018-04-15] MEDS ORDERED: diphenhydrAMINE 50 MG CAP PO PRN (11:18)
[2018-04-15] MEDS ORDERED: SIMETHICONE 80 MG CHEWABLE PO PRN (11:18)
[2018-04-15] MEDS ORDERED: ZOLPIDEM 5 MG TAB PO PRN (11:18)
[2018-04-15] MEDS ORDERED: ACETAMINOPHEN TAB 325 MG TAB PO PRN (11:18)
[2018-04-15] MEDS ORDERED: diphenhydrAMINE 25 MG CAP PO PRN (11:18)
[2018-04-15] MEDS ORDERED: diphenhydrAMINE 50 MG/ML 1 ML VIAL IVP PRN ×2 (11:18)
--- NOTE | 2018-04-15 12:11 | P.HPOB ---
History of Present Illness H&P Date: 04/15/18 Chief Complaint: Induction of Labor 27 year old presents at 39 weeks for induction of labor. Her cervix is 5 cm dilated, 70% effaced, and -2 station. She is rylie irregularly. heart tones 130-135 with moderate variability and reactive. Review of Systems All systems: negative Constitutional: Denies chills, Denies fever Eyes: denies blurred vision, denies pain Ears, nose, mouth and throat: Denies headache, Denies sore throat Cardiovascular: Denies chest pain, Denies shortness of breath Respiratory: Denies cough Gastrointestinal: Denies abdominal pain, Denies diarrhea, Denies nausea, Denies vomiting Genitourinary: Denies dysuria, Denies hematuria Musculoskeletal: Denies myalgias Integumentary: Denies pruritus, Denies rash Neurological: Denies numbness, Denies weakness Psychiatric: Denies anxiety, Denies depression Endocrine: Denies fatigue, Denies weight change Past Medical History Past Medical History: No Reported History Additional Past Medical History / Comment(s): Obstetric history: First was a vaginal delivery. This is her second and she had care with me since 13 weeks. A+, abs neg, Rub Imm, Treponemal ab neg, Hep B neg. she has gestational diabetes, diet-controlled. NSTs have been reactive. GBS neg. History of Any Multi-Drug Resistant Organisms: None Reported Past Surgical History: Cholecystectomy Past Anesthesia/Blood Transfusion Reactions: No Reported Reaction Past Psychological History: No Psychological Hx Reported Smoking Status: Never smoker Past Alcohol Use History: None Reported Past Drug Use History: None Reported - Past Family History Mother Family Medical History: No Reported History Father Family Medical History: Hypertension Medications and Allergies Home Medications Medication Instructions Recorded Confirmed Type Ucc-Ehbx-Mikmr Acid 1 cap PO HS 01/20/17 04/15/18 History [-U Capsule (formulary)] Ranitidine HCl [Zantac] 1 tab PO ONCE 04/15/18 04/15/18 History Allergies Allergy/AdvReac Type Severity Reaction Status Date / Time No Known Allergies Allergy Verified 04/15/18 06:17 Exam Osteopathic Statement: *. No significant issues noted on an osteopathic structural exam other than those noted in the History and Physical/Consult. Vital Signs Temp Pulse Resp BP Pulse Ox 04/15/18 11:55 96.5 F L 67 18 126/74 04/15/18 11:40 71 18 124/76 04/15/18 11:25 96.5 F L 68 18 120/70 04/15/18 11:10 80 18 129/72 04/15/18 10:55 97.3 F L 76 18 135/66 04/15/18 06:18 95.9 F L 74 16 129/80 100 Intake and Output 04/14/18 04/15/18 04/15/18 22:59 06:59 14:59 Intake Total 13.1 Balance 13.1 Intake: Intake, IV Titration 13.1 Amount Oxytocin 20 Units/1000 ml 13.1 Ns 1,000 ml @ 1 MILLIUNIT/MIN 3 mls/hr IV .Q24H [facility] Rx#:[id number] Other: Weight 68.492 kg Heart: Regular rate and rhythm Lungs: Clear to auscultation bilaterally Abdomen: Soft, nontender Extremities: Negative Homans sign Results Result Diagrams: 04/15/18 06:25 Assessment and Plan (1) Normal labor Current Visit: No Status: Resolved Code(s): O80 - ENCOUNTER FOR FULL-TERM UNCOMPLICATED DELIVERY; Z37.9 - OUTCOME OF DELIVERY, UNSPECIFIED SNOMED Code(s ): 36855801 Plan: 1. Admit to family place 2. Induction of labor with amniotomy and Pitocin 3. Anticipate normal vaginal delivery
--- NOTE | 2018-04-15 12:12 | P.PROBDLV ---
Vaginal Delivery Note - . Vaginal Delivery Note: 27 year old presents at 39 weeks for induction of labor. Her cervix is 5 cm dilated, 70% effaced, and -2 station. She is rylie irregularly. heart tones 130-135 with moderate variability and reactive. Pitocin was started. Amniotomy was performed at 9:25 AM, clear fluid noted. She did get an epidural and was comfortable. Her cervix was completely dilated at 10:30 AM. She pushed, and delivered a viable female over intact perineum under epidural anesthesia at 10:50 AM. Head delivered OA, anterior shoulder delivered gentle downward guidance followed by posterior shoulder and rest of body. Nose and mouth bulb suctioned, cord clamped and cut, infant placed on mother's abdomen. Apgars 9, 9, weight 6 lbs. 10 oz. Placenta delivered spontaneously, intact with three-vessel cord at 10:53 AM. Vagina, cervix, and perineum were inspected. First-degree midline laceration was repaired with 3-0 Vicryl. Estimated blood loss 200 mL. Mother and baby in stable condition.
[2018-04-15] MEDS: SENNOSIDES-DOCUSATE SODIUM 1 EACH TAB PO SCH (19:42)
--- NOTE | 2018-04-16 07:07 | P.DS ---
Providers Date of admission: 04/15/18 06:08 Expected date of discharge: 04/16/18 Attending physician: Brigette Rowell Primary care physician: Chelle Mccrary - Discharge Diagnosis(es) (1) Normal vaginal delivery Current Visit: No Status: Acute Hospital Course: Patient presented for induction of labor. She underwent normal vaginal delivery. Her course was uncomplicated. She'll be discharged home day #1 in stable condition to follow-up with me in 6 weeks. Plan - Discharge Summary New Discharge Prescriptions: New Ibuprofen [Motrin] 600 mg PO Q6HR PRN #30 tab PRN Reason: Mild Pain Or Fever >= 100.5 No Action Hrz-Uefl-Mxvnh Acid [-U Capsule (formulary)] 1 cap PO HS Ranitidine HCl [Zantac] 1 tab PO ONCE Discharge Medication List Mjq-Fows-Dnvuk Acid [-U Capsule (formulary)] 1 cap PO HS [History] Ranitidine HCl [Zantac] 1 tab PO ONCE 04/15/18 [History] Ibuprofen [Motrin] 600 mg PO Q6HR PRN #30 tab 04/16/18 [Rx] Follow up Appointment(s)/Referral(s): Brigette Rowell DO [Doctor of Osteopathic Medicine] - 6 Weeks Discharge Disposition: HOME SELF-CARE
[2018-04-16 08:17] VITALS: BP 131/73; PULSE 68; RESP 18; TEMP 97.9
[2018-04-16] MEDS: SENNOSIDES-DOCUSATE SODIUM 1 EACH TAB PO SCH (13:19)
== END 2018-04-16 12:03 | disposition home or self-care (01) | DRG 807 ==
LOC: 4FBP 06:08
PROVIDERS: ADMIT Obstetrics & Gynecology; ATTEND Obstetrics & Gynecology
PROC: 10E0XZZ Delivery of Products of Conception, External Approach (ICD-10-PCS; principal; 2018-04-15)
PROC: 0HQ9XZZ Repair Perineum Skin, External Approach (ICD-10-PCS; 2018-04-15)
PROC: 10907ZC Drainage of Amniotic Fluid, Therapeutic from Products of Conception, Via Natural or Artificial Opening (ICD-10-PCS; 2018-04-15)
PROC: 3E033VJ Introduction of Other Hormone into Peripheral Vein, Percutaneous Approach (ICD-10-PCS; 2018-04-15)
PROC: 00HU33Z Insertion of Infusion Device into Spinal Canal, Percutaneous Approach (ICD-10-PCS; 2018-04-15)
PROC: 3E0R3BZ Introduction of Anesthetic Agent into Spinal Canal, Percutaneous Approach (ICD-10-PCS; 2018-04-15)
DX: O24.420 Gestational diabetes mellitus in childbirth, diet controlled (principal); Z37.0 Single live birth; O70.0 First degree perineal laceration during delivery; Z3A.39 39 weeks gestation of pregnancy; Z82.49 Family history of ischemic heart disease and other diseases of the circulatory system; Z90.49 Acquired absence of other specified parts of digestive tract
CPT/HCPCS: 85025; 86850; 86900; 86901

== ENCOUNTER 2018-07-13 13:04 | Emergency (ER) | payer OTHER ==
[2018-07-13 13:08] VITALS: BP 148/98; PULSE 105; RESP 18; TEMP 98.3
--- NOTE | 2018-07-13 13:35 | ED ---
General Adult HPI - General Chief complaint: ENT Stated complaint: Dizzy Time Seen by Provider: 07/13/18 13:11 Source: patient, RN notes reviewed Mode of arrival: ambulatory Limitations: language barrier - History of Present Illness Initial comments: This a 27-year-old female presents emergency Department with chief complaint of fever cough congestion sore throat. Patient states his symptoms started last few days. Temp was 103 last night. Patient states she feels achy, chills. She complains that she's had intermittent sore throat no difficulty swallowing. No recent Tylenol Motrin. She did take some Robitussin for her cough. Her cough is occasionally productive denies any chest pain or shortness breath currently. Denies any nausea vomiting diarrhea constipation. Denies any chance . - Related Data Home Medications Medication Instructions Recorded Confirmed Vpi-Bgja-Lgxgj Acid 1 cap PO HS 01/20/17 04/15/18 [-U Capsule (formulary)] Ranitidine HCl [Zantac] 1 tab PO ONCE 04/15/18 04/15/18 Previous Rx's Medication Instructions Recorded Ibuprofen [Motrin] 600 mg PO Q6HR PRN #30 tab 04/16/18 Oseltamivir [Tamiflu] 75 mg PO Q12HR #10 cap 07/13/18 Allergies Allergy/AdvReac Type Severity Reaction Status Date / Time No Known Allergies Allergy Verified 07/13/18 13:08 Review of Systems ROS Statement: Those systems with pertinent positive or pertinent negative responses have been documented in the HPI. ROS Other: All systems not noted in ROS Statement are negative. Past Medical History Past Medical History: No Reported History Additional Past Medical History / Comment(s): Obstetric history: First was a vaginal delivery. This is her second and she had care with pa since 13 weeks. A+, abs neg, Rub Imm, Treponemal ab neg, Hep B neg. she has gestational diabetes, diet-controlled. NSTs have been reactive. GBS neg. History of Any Multi-Drug Resistant Organisms: None Reported Past Surgical History: Cholecystectomy Past Anesthesia/Blood Transfusion Reactions: No Reported Reaction Past Psychological History: No Psychological Hx Reported Smoking Status: Never smoker Past Alcohol Use History: None Reported Past Drug Use History: None Reported - Past Family History Mother Family Medical History: No Reported History Father Family Medical History: Hypertension General Exam Limitations: language barrier General appearance: alert, in no apparent distress Head exam: Present: atraumatic, normocephalic, normal inspection Eye exam: Present: normal appearance, PERRL, EOMI. Absent: scleral icterus, conjunctival injection, periorbital swelling ENT exam: Present: normal exam, normal oropharynx, mucous membranes moist, TM's normal bilaterally, normal external ear exam Neck exam: Present: normal inspection, full ROM. Absent: tenderness, meningismus, lymphadenopathy Respiratory exam: Present: normal lung sounds bilaterally. Absent: respiratory distress, wheezes, rales, rhonchi, stridor Cardiovascular Exam: Present: regular rate, normal rhythm, normal heart sounds. Absent: systolic murmur, diastolic murmur, rubs, gallop, clicks GI/Abdominal exam: Present: soft, normal bowel sounds. Absent: distended, tenderness, guarding, rebound, rigid Neurological exam: Present: alert, oriented X3, CN II-XII intact Skin exam: Present: warm, dry, intact, normal color. Absent: rash Course Vital Signs 07/13/18 07/13/18 13:06 13:36 Temperature 98.3 F Pulse Rate 105 H Respiratory 18 18 Rate Blood Pressure 148/98 O2 Sat by Pulse 100 Oximetry Medical Decision Making - Medical Decision Making 27-year-old female presented for fever cough congestion. Patient is influenza A positive. Patient continue Tylenol and Motrin. Patient offered Tamiflu. Return parameters were discussed. - Lab Data Lab Results 07/13/18 07/13/18 Range/Units 13:32 13:32 Influenza Type A RNA Detected H (Not Detectd) Influenza Type B (PCR) Not Detected (Not Detectd) Group A Strep Rapid Negative (Negative) Disposition Clinical Impression: Influenza Disposition: HOME SELF-CARE Condition: Stable Instructions (If sedation given, give patient instructions): Influenza (ED) Additional Instructions: Please return to the Emergency Department if symptoms worsen or any other concerns. Prescriptions: Oseltamivir [Tamiflu] 75 mg PO Q12HR #10 cap Is patient prescribed a controlled substance at d/c from ED?: No Referrals: Chelle Mccrary MD [Primary Care Provider] - 1-2 days
--- NOTE | 2018-07-13 14:11 | XR ---
EXAMINATION TYPE: XR chest 2V DATE OF EXAM: 07/13/2018 COMPARISON: NONE HISTORY: Cough and fever TECHNIQUE: Frontal and lateral views of the chest are obtained. FINDINGS: Heart and mediastinum are normal. Lungs are clear. Diaphragm is normal. Bony thorax appear s normal. IMPRESSION: Normal chest
== END 2018-07-13 14:25 | disposition home or self-care (01) ==
LOC: EC 13:04
DX: J10.1 Influenza due to other identified influenza virus with other respiratory manifestations (principal); Z79.899 Other long term (current) drug therapy
CPT/HCPCS: 71046; 87081; 87430; 87502; 99284

== ENCOUNTER 2018-07-17 12:54 | Emergency (ER) | payer OTHER ==
[2018-07-17 12:58] VITALS: BP 119/78; PULSE 72; RESP 18; TEMP 98
--- NOTE | 2018-07-17 13:27 | ED ---
Dizziness HPI - General Chief Complaint: Dizziness Stated Complaint: DIZZINESS X 5 DAYS Time Seen by Provider: 07/17/18 12:59 Source: patient Mode of arrival: ambulatory Limitations: language barrier - History of Present Illness Initial Comments: 27-year-old female who denies past medical history presents today for chief complaint of dizziness with head movements. Patient states that for the past 5 days when she turns her head quickly she has dizziness which includes the room spinning. Patient denies any lightheaded sensation, chest pain, heart pal pitations. Patient states this lasts for less than a minute. And repeatedly occur throughout the day with head movements. Patient denies any changes in gait. Patient states she did have one episode of emesis due to the dizziness on Saturday however denies any sense. Patient denies any diarrhea, fever, neck pain, hearing loss, tinnitus, muscle weakness, sensation deficits, headache, trauma to the head or neck, visual loss, diplopia, or voice changes, tingling or paresthesias. Patient states she did experience left ear pain for a few moments on Saturday. Remaining ROS (-) upon arrival patient appears well. No signs of acute distress, VS WNL. Patient denies any recent shortness of breath, chest pain, back pain, abdominal pain, dysuria or hematuria, constipation or diarrhea, or any other complaints. - Related Data Previous Rx's Medication Instructions Recorded Meclizine [Antivert] 25 mg PO BID 7 Days #14 tab 07/17/18 Allergies Allergy/AdvReac Type Severity Reaction Status Date / Time No Known Allergies Allergy Verified 07/17/18 13:15 Review of Systems ROS Statement: Those systems with pertinent positive or pertinent negative responses have been documented in the HPI. ROS Other: All systems not noted in ROS Statement are negative. Past Medical History Past Medical History: No Reported History Additional Past Medical History / Comment(s): Obstetric history: First was a vaginal delivery. This is her second and she had care with me since 13 weeks. A+, abs neg, Rub Imm, Treponemal ab neg, Hep B neg. she has gestational diabetes, diet-controlled. NSTs have been reactive. GBS neg. History of Any Multi-Drug Resistant Organisms: None Reported Past Surgical History: Cholecystectomy Past Anesthesia/Blood Transfusion Reactions: No Reported Reaction Past Psychological History: No Psychological Hx Reported Smoking Status: Never smoker Past Alcohol Use History: None Reported Past Drug Use History: None Reported - Past Family History Mother Family Medical History: No Reported History Father Family Medical History: Hypertension General Exam - General Exam Comments Initial Comments: General: The patient is awake and alert, in no distress, and does not appear acutely ill. Eye: +3 mm pupils are equal, round and reactive to light, extra-ocular movements are intact. No nystagmus. There is normal conjunctiva bilaterally. No signs of icterus. Ears, nose, mouth and throat: There are moist mucous membranes and no oral lesions. Neck: The neck is supple, there is no tenderness or JVD. Cardiovascular: There is a regular rate and rhythm. No murmur, rub or gallop is appreciated. Respiratory: Lungs are clear to auscultation, respirations are non-labored, breath sounds are equal. No wheezes, stridor, rales, or rhonchi. Gastrointestinal: Soft, non-distended, non-tender abdomen without masses or organomegaly noted. There is no rebound or guarding present. Musculoskeletal: Normal ROM, no tenderness. Strength 5/5. Sensation intact. Radial pulses equal bilaterally 2+. Neurological: A&O x 3. CN II-XII intact, memory intact to immediately, intermediate and acid mixer recall. Able to follow simple verbal. Able to name a common object (pen). High quality, labial (pa) and lingual (la) speech. Low quality posterior pharynx/larynx (ga) voice sounds. Able to express general knowledge (days in a week). No hemineglect or inattention noted. Finger agnosia (-) and spatially oriented (identified L index finger touched R shoulder with L index finger). Light touch and temperature sensation present over the face, chest, abdomen, back, UE bilaterally, and LE bilaterally. Able to localize point during point localization b/l and extinction. No visible bulk atrophy, hypertrophy, fasciculations, or myoclonus of the UE or LE b/l. Full PROM in UE and LE b/l. Bilateral muscle strength 5/5 for the following muscles: deltoid, biceps, triceps, brachioradialis, wrist extensors/flexor, hip flexor, hip abductors/adductors, hamstrings, quadriceps, feet dorsiflexors/plantar flexors. Finger to nose, finger to the examiners finger, and heel to sanchez coordinated and accurate b/l. Coordinated and even demonstration of hand flip, finger to thumb, and toe tap b/l. +2 brachioradialis, triceps, patellar, and Achilles DTR b/l. Gait is coordinated and even in stride with tandem, toe and heel walk. Maintains balance with monopedal stance. (-) Romberg. (-) pronator drift. No nuchal rigidity. (-) Brudzinskis and Kernig signs. Cannot induce nystagmus with briana-hallpike, but patient states has dizziness with maneuver. Skin: Skin is warm and dry and no rashes or lesions are noted. No LE edema. Psychiatric: Cooperative, appropriate mood & affect, normal judgment. Limitations: language barrier Course Vital Signs 07/17/18 12:55 Temperature 98.0 F Pulse Rate 72 Respiratory 18 Rate Blood Pressure 119/78 O2 Sat by Pulse 100 Oximetry Medical Decision Making - Medical Decision Making 27-year-old female presenting for dizziness 5 days. She denies . Patient states it occurs on and off throughout the day less than 1 minute with changes of position of the head. Patient denies any significant ataxia. No ataxia upon examination. Patient is no focal neurological deficits or compl aints. Ear examination unremarkable. Neck membranes within normal limits. Patient denies any hearing loss or tinnitus. Patient has no past medical history, denies any palpitations, chest pain, lightheadedness or shortness of breath. This time feel patient most likely has benign positional vertigo. Patient has no symptoms or history concerning for central cause at this time. Patient be discharged with prescription for Antivert. I did recommend follow-up with primary care provider in the next 2-3 days, if symptoms persist or become constant I recommended outpatient MRI. Patient verbalized understanding states that she will follow up with primary care provider as directed. Patient denies questions. Return parameters were discussed at length with patient who verbalized understanding. I discussed the case with attending provider Dr. Garcia at this time he is agreeable to plan and patient's discharge. Patient discharge appearing well. Disposition Clinical Impression: Peripheral vertigo Disposition: HOME SELF-CARE Condition: Good Instructions (If sedation given, give patient instructions): Benign Paroxysmal Positional Vertigo (ED), Dizziness (ED) Additional Instructions: Please use medication as discussed. Please follow-up with family doctor in the next 2 days of symptoms have not improved, if symptoms are persistent > 2 weeks I would recommend outpatient MRI, or return to the emergency department. Please return to emergency room if the symptoms increase or worsen or for any other concerns. Prescriptions: Meclizine [Antivert] 25 mg PO BID 7 Days #14 tab Is patient prescribed a controlled substance at d/c from ED?: No Referrals: Chelle Mccrary MD [Primary Care Provider] - 1-2 days Time of Disposition: 13:30
== END 2018-07-17 14:15 | disposition home or self-care (01) ==
LOC: EC 12:54
DX: H81.399 Other peripheral vertigo, unspecified ear (principal)
CPT/HCPCS: 99283

== ENCOUNTER → 2018-07-23 | Outpatient (CLI) | payer OTHER ==
--- NOTE | 2018-07-23 14:21 | US ---
EXAMINATION TYPE: US pelvic complete DATE OF EXAM: 07/23/2018 COMPARISON: NONE CLINICAL HISTORY: 27-year-old female R10.2 PELVIC PAIN, Z97.5 IUD PLACEMENT. TECHNIQUE: Transabdominal (TA). Date of LMP: 07/16/2018 FINDINGS: EXAM MEASUREMENTS: Uterus: 10.0 x 3.3x5.7 cm Endometrial Stripe: 0.7 cm Right Ovary: 3.9 x 1.7 x 3.0 cm Left Ovary: 3.0 x 1.9 x 2.8 cm 1. Uterus: Anteverted 2. Endometrium: wnl; IUD appears within endometrium 3. Right Ovary: wnl 4. Left Ovary: wnl 5. Bilateral Adnexa: wnl 6. Posterior cul-de-sac: no free fluid IRON CUTTER NOTES: IUD appears within place in endometrium, unremarkable study IMPRESSION: 1. IUD visualized appropriately situated within the uterine cavity. 2. No specific abnormality seen on transabdominal scanning.
== END | disposition home or self-care (01) ==
LOC: RADUSWWP 13:40
PROVIDERS: ATTEND Obstetrics & Gynecology
DX: R10.2 Pelvic and perineal pain (principal); Z97.5 Presence of (intrauterine) contraceptive device
CPT/HCPCS: 76856

== ENCOUNTER 2019-02-20 07:21 | Emergency (ER) | payer OTHER ==
[2019-02-20 07:29] VITALS: RESP 16
[2019-02-20] MEDS ORDERED: METOCLOPRAMIDE 5 MG/ML 2 ML VIAL IVP STA (07:47)
[2019-02-20] MEDS ORDERED: SODIUM CHLORIDE 0.9% 500 ML 500 ML IV STA (07:47)
--- NOTE | 2019-02-20 08:18 | ED ---
General Adult HPI - General Chief complaint: Headache Stated complaint: headache/nausea Time Seen by Provider: 02/20/19 07:37 Source: patient, sheet heater, RN notes reviewed Mode of arrival: ambulatory Limitations: no limitations - History of Present Illness Initial comments: Patient is a pleasant 28-year-old female presenting to the emergency department with another female who does help translate. Patient complains of headache. Onset of headache was yesterday. Onset was over around an hour. Headache was more severe yesterday. Headache has been persistent but improved slightly. Patient does have associated nausea and has vomiting. Patient does have history of headaches however this is been more severe than previous. Patient had mild photophobia only with headlights visualized on the cars while presenting to the emergency department. Headache is in the frontal and somewhat temporal as well as a posterior region. No fevers. - Related Data Previous Rx's Medication Instructions Recorded Metoclopramide HCl [Reglan] 10 mg PO Q6HR PRN #15 tablet 02/20/19 Allergies Allergy/AdvReac Type Severity Reaction Status Date / Time No Known Allergies Allergy Verified 02/20/19 09:28 Review of Systems ROS Statement: Those systems with pertinent positive or pertinent negative responses have been documented in the HPI. ROS Other: All systems not noted in ROS Statement are negative. Constitutional: Denies: fever Eyes: Denies: eye pain ENT: Denies: ear pain Respiratory: Denies: cough Cardiovascular: Denies: chest pain Endocrine: Denies: fatigue Gastrointestinal: Reports: nausea, vomiting. Denies: abdominal pain Genitourinary: Denies: urgency Musculoskeletal: Denies: back pain Skin: Denies: rash Neurological: Reports: as per HPI, headache. Denies: weakness, numbness, paresthesias, confusion Past Medical History Past Medical History: No Reported History Additional Past Medical History / Comment(s): Obstetric history: First was a vaginal delivery. This is her second and she had care with me since 13 weeks. A+, abs neg, Rub Imm, Treponemal ab neg, Hep B neg. she has gestational diabetes, diet-controlled. NSTs have been reactive. GBS neg. History of Any Multi-Drug Resistant Organisms: None Reported Past Surgical History: Cholecystectomy Past Anesthesia/Blood Transfusion Reactions: No Reported Reaction Past Psychological History: No Psychological Hx Reported Smoking Status: Never smoker Past Alcohol Use History: None Reported Past Drug Use History: None Reported - Past Family History Mother Family Medical History: No Reported History Father Family Medical History: Hypertension General Exam Limitations: no limitations General appearance: alert, in no apparent distress Head exam: Present: atraumatic, normocephalic Eye exam: Present: normal appearance, PERRL, EOMI. Absent: nystagmus ENT exam: Present: normal oropharynx Neck exam: Present: normal inspection Respiratory exam: Present: normal lung sounds bilaterally Cardiovascular Exam: Present: regular rate, normal rhythm GI/Abdominal exam: Present: soft. Absent: tenderness Extremities exam: Present: normal inspection. Absent: pedal edema, calf tenderness Neurological exam: Present: alert, oriented X3, CN II-XII intact. Absent: motor sensory deficit Expanded Neurological exam: Present: protecting the airway Speech: Present: fluid speech Cranial nerves: EOM's Intact: Normal, Facial Sensation: Normal Sensory exam: Upper Extremity Light Touch: Normal, Lower Extremity Light Touch: Normal Motor strength exam: RUE: 5, LUE: 5, RLE: 5, LLE: 5 Eye Response: (4) open spontaneously Motor Response: (6) obeys commands Verbal Response: (5) oriented Psychiatric exam: Present: normal affect, normal mood Skin exam: Present: normal color Course Vital Signs 02/20/19 02/20/19 07:26 09:51 Temperature 98.0 F 98.1 F Pulse Rate 64 63 Respiratory 16 16 Rate Blood Pressure 114/72 107/76 O2 Sat by Pulse 99 98 Oximetry Medical Decision Making - Medical Decision Making Patient reevaluated and feels much better. Patient updated on results and need for follow-up. - Lab Data Result diagrams: 02/20/19 08:07 02/20/19 08:07 Lab Results 02/20/19 02/20/19 02/20/19 Range/Units 08:07 08:07 08:07 WBC 7.8 (3.8-10.6) k/uL RBC 4.40 (3.80-5.40) m/uL Hgb 14.1 (11.4-16.0) gm/dL Hct 40.2 (34.0-46.0) % MCV 91.4 (80.0-100.0) fL MCH 32.0 (25.0-35.0) pg MCHC 35.0 (31.0-37.0) g/dL RDW 12.6 (11.5-15.5) % Plt Count 269 (150-450) k/uL Neutrophils % 72 % Lymphocytes % 18 % Monocytes % 6 % Eosinophils % 2 % Basophils % 1 % Neutrophils # 5.6 (1.3-7.7) k/uL Lymphocytes # 1.4 (1.0-4.8) k/uL Monocytes # 0.5 (0-1.0) k/uL Eosinophils # 0.1 (0-0.7) k/uL Basophils # 0.1 (0-0.2) k/uL PT 10.3 (9.0-12.0) sec INR 1.0 (<1.2) APTT 26.7 (22.0-30.0) sec Sodium 140 (137-145) mmol/L Potassium 3.8 (3.5-5.1) mmol/L Chloride 105 (98-107) mmol/L Carbon Dioxide 26 (22-30) mmol/L Anion Gap 9 mmol/L BUN 12 (7-17) mg/dL Creatinine 0.60 (0.52-1.04) mg/dL Est GFR (CKD-EPI)AfAm >90 (>60 ml/min/1.73 sqM) Est GFR (CKD-EPI)NonAf >90 (>60 ml/min/1.73 sqM) Glucose 102 H (74-99) mg/dL Calcium 9.4 (8.4-10.2) mg/dL Total Bilirubin 0.7 (0.2-1.3) mg/dL AST 21 (14-36) U/L ALT 32 (9-52) U/L Alkaline Phosphatase 66 (38-126) U/L Total Protein 7.6 (6.3-8.2) g/dL Albumin 4.5 (3.5-5.0) g/dL - Radiology Data Radiology results: image reviewed (Computed tomography scan of the brain and CTA reveals no acute abnormality.) Disposition Clinical Impression: Headache Disposition: HOME SELF-CARE Condition: Stable Instructions (If sedation given, give patient instructions): Acute Headache (ED) Additional Instructions: Please follow-up with primary care physician in the next day or 2 for recheck. Return for increased pain, weakness, confusion, speech problems, worsening symptoms or other concerns. Your prescription has been sent to [facility]. Prescriptions: Metoclopramide HCl [Reglan] 10 mg PO Q6HR PRN #15 tablet PRN Reason: Nausea Is patient prescribed a controlled substance at d/c from ED?: No Referrals: Nevaeh Post MD [STAFF PHYSICIAN] - 1-2 days Time of Disposition: 10:20
[2019-02-20 08:26] LABS: Basophils # (A) 0.1 k/uL (0-0.2); Basophils % (A) 1 %; Eosinophils # (A) 0.1 k/uL (0-0.7); Eosinophils % (A) 2 %; HCT 40.2 % (34.0-46.0); HGB 14.1 gm/dL (11.4-16.0); Lymphocytes # (A) 1.4 k/uL (1.0-4.8); Lymphocytes % (A) 18 %; MCV 91.4 fL (80.0-100.0); Mean Platelet Volume 6.3; Monocytes # (A) 0.5 k/uL (0-1.0); Monocytes % (A) 6 %; Neutrophils # (A) 5.6 k/uL (1.3-7.7); Neutrophils % (A) 72 %; Platelet Count 269 k/uL (150-450); RDW 12.6 % (11.5-15.5); WBC 7.8 k/uL (3.8-10.6)
[2019-02-20 08:41] LABS: Partial Thromboplastin Time 26.7 sec (22.0-30.0); Prothrombin Time 10.3 sec (9.0-12.0)
[2019-02-20 08:43] LABS: ALT 32 U/L (9-52); AST 21 U/L (14-36); African American GFR (CKD) >90 (>60 ml/min/1.73 sqM); Albumin 4.5 g/dL (3.5-5.0); Alkaline Phosphatase 66 U/L (38-126); Anion Gap 9 mmol/L; Blood Urea Nitrogen 12 mg/dL (7-17); Calcium 9.4 mg/dL (8.4-10.2); Carbon Dioxide 26 mmol/L (22-30); Chloride 105 mmol/L (98-107); Glucose 102 mg/dL (74-99); Potassium 3.8 mmol/L (3.5-5.1); Sodium 140 mmol/L (137-145); Total Bilirubin 0.7 mg/dL (0.2-1.3); Total Protein 7.6 g/dL (6.3-8.2)
--- NOTE | 2019-02-20 09:37 | CT ---
EXAMINATION TYPE: CT angio head DATE OF EXAM: 02/20/2019 COMPARISON: None HISTORY: Headache and nausea CT DLP: 1847 mGycm CONTRAST: CTA comanche of Melendrez with 3-D reconstruction is performed and without and with IV Contrast, patient i njected with 100 mL of Isovue 370. Contrast CTA of the comanche of Melendrez was performed 3-D reconstruction imaging obtained at a separate workstation. Vertebrobasilar system as well as intracranial portions of the internal carotid arterie s and their major tributaries are patent. I do not see evidence for sizable aneurysm or vascular mal formation. Please note MRI provides greater sensitivity and specificity. Visualized brain appears g rossly unremarkable. IMPRESSION: No evidence for sizable aneurysm or vascular malformation.
[2019-02-20 09:52] VITALS: BP 107/76; PULSE 63; TEMP 98.1
== END 2019-02-20 10:30 | disposition home or self-care (01) ==
LOC: EC 07:21
DX: R51 Headache (principal); R11.2 Nausea with vomiting, unspecified; H53.149 Visual discomfort, unspecified
CPT/HCPCS: 36415; 80053; 85025; 85610; 85730; 70496; 96374; 99284; J2765; Q9967

== ENCOUNTER 2023-02-08 07:09 | Emergency (ER) | payer OTHER ==
[2023-02-08 07:26] VITALS: TEMP 97.4
[2023-02-08] MEDS ORDERED: diphenhydrAMINE 50 MG/ML 1 ML VIAL IVP STA (07:51)
[2023-02-08] MEDS ORDERED: KETOROLAC 15 MG/ML 1 ML VIAL IVP STA (07:51)
[2023-02-08] MEDS ORDERED: ONDANSETRON 4 MG/2 ML VIAL IVP STA (07:51)
[2023-02-08] MEDS ORDERED: SODIUM CHLORIDE 0.9% 1,000 ML IV STA (07:51)
--- NOTE | 2023-02-08 08:03 | ED ---
General Adult HPI - General Chief complaint: Dizziness Stated complaint: Heart Palpitations, Dizziness Time Seen by Provider: 02/08/23 07:15 Source: patient Mode of arrival: ambulatory Limitations: language barrier - History of Present Illness Initial comments: Dictation was produced using [employer] dictation software. please excuse any grammatical, word or spelling errors. Chief Complaint: 32-year-old female presents emergency by with headache and palpitations History of Present Illness: 32-year-old female presents emergency Department with headache and palpitations. Patient states that she had a headache starting at 6:00 AM this morning. He doesn't have any medical history. She has history of migraines however states that her headache is rather in a different location than from which is used to. Denies any numbness and paresthesias. Patient also having palpitations. She does not have any cardiac history. Patient has a palpitations currently. She does have some mild epigastric discomfort. No nausea vomiting. No fever or constitutional symptoms. The ROS documented in this emergency department record has been reviewed and confirmed by me. Those systems with pertinent positive or negative responses have been documented in the HPI. All other systems are other negative and/or noncontributory. - Related Data Previous Rx's Medication Instructions Recorded Metoclopramide HCl [Reglan] 10 mg PO Q6HR PRN #15 tablet 02/20/19 Allergies Allergy/AdvReac Type Severity Reaction Status Date / Time No Known Allergies Allergy Verified 02/08/23 07:17 Review of Systems ROS Statement: Those systems with pertinent positive or pertinent negative responses have been documented in the HPI. ROS Other: All systems not noted in ROS Statement are negative. Past Medical History Past Medical History: No Reported History Additional Past Medical History / Comment(s): Obstetric history: First was a vaginal delivery. This is her second and she had care with me since 13 weeks. A+, abs neg, Rub Imm, Treponemal ab neg, Hep B neg. she has gestational diabetes, diet-controlled. NSTs have been reactive. GBS neg. History of Any Multi-Drug Resistant Organisms: None Reported Past Surgical History: Cholecystectomy Past Anesthesia/Blood Transfusion Reactions: No Reported Reaction Past Psychological History: No Psychological Hx Reported Smoking Status: Never smoker Past Alcohol Use History: None Reported Past Drug Use History: None Reported - Past Family History Mother Family Medical History: No Reported History Father Family Medical History: Hypertension General Exam - General Exam Comments Initial Comments: PHYSICAL EXAM: General Impression: Alert and oriented x3, not in acute distress HEENT: Normocephalic atraumatic, extra-ocular movements intact, pupils equal and reactive to light bilaterally, mucous membranes moist. Cardiovascular: Heart regular rate and rhythm Chest: Able to complete full sentences, no retractions, no tachypnea Abdomen: abdomen soft, non-tender, non-distended, no organomegaly Musculoskeletal: Pulses present and equal in all extremities, no peripheral edema Motor: no focal deficits noted Neurological: CN II-XII grossly intact, no focal motor or sensory deficits noted Skin: Intact with no visualized rashes Psych: Normal affect and mood Limitations: language barrier Course Vital Signs 02/08/23 02/08/23 07:14 08:24 Temperature 97.4 F L Pulse Rate 69 83 Respiratory 20 16 Rate Blood Pressure 134/80 121/76 O2 Sat by Pulse 100 100 Oximetry EKG Findings - EKG Comments: EKG Findings:: My EKG interpretation: Ventricular rate 65, sinus rhythm,. Interval 199, QRS 92, QTc 435. No FL prolongation, no QTC prolongation, no ST or T-wave changes noted. Overall, this EKG is unremarkable Medical Decision Making - Medical Decision Making Was pt. sent in by a medical professional or institution (GAYLA Erickson, MANAGER OF FINANCE, urgent care, hospital, or prison...) When possible be specific @ -No Did you speak to anyone other than the patient for history (EMS, parent, family, police, friend...)? What history was obtained from this source @ -No Did you review nursing and triage notes (agree or disagree)? Why? @ -I reviewed and agree with nursing and triage notes Were old charts reviewed (outside hosp., previous admission, EMS record, old EKG, old radiological studies, urgent care reports/EKG's, prison records)? Report findings @ -No old charts were reviewed Differential Diagnosis (chest pain, altered mental status, abdominal pain women, abdominal pain men, vaginal bleeding, musculoskeletal, weakness, fever, dyspnea, syncope, headache, dizziness, GI bleed, back pain, seizure, CVA, palpatations, mental health)? @ -Differential Headache: Migraine, tension, cluster, carbon monoxide, central venous thrombosis, pension karma temporal arteritis, acute closure glaucoma, intercranial hemorrhage, mastoiditis, sinusitis, head injury, this is not meant to be an all-inclusive list. Differential Palpitations: Ventricular arrhythmias, atrial arrhythmias, myocardial infarction, anemia, thyrotoxicosis, electrolyte imbalance, hypokalemia, pulmonary embolism, pulmonary disease, drugs, alcohol, anxiety, stress.... This is not meant to be an all-inclusive list. EKG interpreted by me (3pts min.). @ -See above X-rays interpreted by me (1pt min.). @ -None done CT interpreted by me (1pt min.). @ -Scan of brain is unremarkable U/S interpreted by me (1pt. min.). @ -None done What testing was considered but not performed or refused? (CT, X-rays, U/S, labs)? Why? @ -None What meds were considered but not given or refused? Why? @ -None Did you discuss the management of the patient with other professionals (professionals i.e. , PA, MANAGER OF FINANCE, lab, RT, psych nurse, social work msw, boarding room fixer, teacher, armor officer, field nurse case manager)? Give summary @ -No Was smoking cessation discussed for >3mins.? @ -No Was critical care preformed (if so, how long)? @ -No Were there social determinants of health that impacted care today? How? ( Homelessness, low income, unemployed, alcoholism, drug addiction, transportation, low edu. Level, literacy, decrease access to med. care, fci, rehab)? @ -No Was there de-escalation of care discussed even if they declined (Discuss DNR or withdrawal of care, Hospice)? DNR status @ -No What co-morbidities impacted this encounter? (DM, HTN, Smoking, COPD, CAD, Cancer, CVA, ARF, Chemo, Hep., AIDS, mental health diagnosis, sleep apnea, morbid obesity)? @ -None Was patient admitted / discharged? Hospital course, mention meds given and route, prescriptions, significant lab abnormalities, going to OR and other pertinent info. @ -Year-old well-appearing female with no significant past comorbidities presents to the ER for headache and palpitations. Vital signs stable. EKG is unremarkable. Labs are normal. Patient reevaluated at bedside at 9:48 AM with improvement of symptoms after headache cocktail. Imaging studies are negative. Patient discharged told to follow-up with primary care doctor. Undiagnosed new problem with uncertain prognosis? @ -No Drug Therapy requiring intensive monitoring for toxicity (Heparin, Nitro, Insulin, Cardizem)? @ -No Were any procedures done? @ -No Diagnosis/symptom? Acute, or Chronic, or Acute on Chronic? Uncomplicated (without systemic symptoms) or Complicated (systemic symptoms)? @ -1. Headache, 2. Palpitations Side effects of treatment? @ -No Exacerbation, Progression, or Severe Exacerbation? @ -No Poses a threat to life or bodily function? How? (Chest pain, [place], [place], pneumonia, PE, COPD, DKA, ARF, appy, cholecystitis, CVA, Diverticulitis, Homicidal, Suicidal, threat to staff... and all critical care pts) @ -No - Lab Data Result diagrams: 02/08/23 08:10 02/08/23 08:10 Lab Results 02/08/23 02/08/23 02/08/23 Range/Units 08:10 08:10 08:10 WBC 6.7 (3.8-10.6) k/uL RBC 4.26 (3.80-5.40) m/uL Hgb 13.6 (11.4-16.0) gm/dL Hct 39.3 (34.0-46.0) % MCV 92.3 (80.0-100.0) fL MCH 31.9 (25.0-35.0) pg MCHC 34.5 (31.0-37.0) g/dL RDW 12.5 (11.5-15.5) % Plt Count 233 (150-450) k/uL MPV 7.9 Neutrophils % 75 % Lymphocytes % 19 % Monocytes % 5 % Eosinophils % 1 % Basophils % 0 % Neutrophils # 5.0 (1.3-7.7) k/uL Lymphocytes # 1.3 (1.0-4.8) k/uL Monocytes # 0.3 (0-1.0) k/uL Eosinophils # 0.0 (0-0.7) k/uL Basophils # 0.0 (0-0.2) k/uL Sodium 138 (137-145) mmol/L Potassium 4.4 (3.5-5.1) mmol/L Chloride 104 (98-107) mmol/L Carbon Dioxide 22 (22-30) mmol/L Anion Gap 12 mmol/L BUN 13 (7-17) mg/dL Creatinine 0.45 L (0.52-1.04) mg/dL Est GFR (CKD-EPI)AfAm >90 (>60 ml/min/1.73 sqM) Est GFR (CKD-EPI)NonAf >90 (>60 ml/min/1.73 sqM) Glucose 101 H (74-99) mg/dL Calcium 9.4 (8.4-10.2) mg/dL Magnesium 1.8 (1.6-2.3) mg/dL Troponin I <0.012 (0.000-0.034) ng/mL Disposition Clinical Impression: Headache, Palpitations Disposition: HOME SELF-CARE Condition: Good Instructions (If sedation given, give patient instructions): Acute Headache (ED), Heart Palpitations (ED) Is patient prescribed a controlled substance at d/c from ED?: No Referrals: Chelle Mccrary MD [Primary Care Provider] - 1-2 days Time of Disposition: 09:49
[2023-02-08 08:32] LABS: Basophils % (A) 0 %; Eosinophils % (A) 1 %; HCT 39.3 % (34.0-46.0); HGB 13.6 gm/dL (11.4-16.0); Lymphocytes # (A) 1.3 k/uL (1.0-4.8); Lymphocytes % (A) 19 %; MCH 31.9 pg (25.0-35.0); MCHC 34.5 g/dL (31.0-37.0); MCV 92.3 fL (80.0-100.0); Mean Platelet Volume 7.9; Monocytes # (A) 0.3 k/uL (0-1.0); Monocytes % (A) 5 %; Neutrophils % (A) 75 %; Platelet Count 233 k/uL (150-450); RBC 4.26 m/uL (3.80-5.40); RDW 12.5 % (11.5-15.5); WBC 6.7 k/uL (3.8-10.6)
[2023-02-08 08:36] VITALS: RESP 16
[2023-02-08 08:43] LABS: African American GFR (CKD) >90 (>60 ml/min/1.73 sqM); Anion Gap 12 mmol/L; Blood Urea Nitrogen 13 mg/dL (7-17); Calcium 9.4 mg/dL (8.4-10.2); Carbon Dioxide 22 mmol/L (22-30); Chloride 104 mmol/L (98-107); Glucose 101 mg/dL (74-99); Magnesium 1.8 mg/dL (1.6-2.3); Non-African American GFR(CKD) >90 (>60 ml/min/1.73 sqM); Potassium 4.4 mmol/L (3.5-5.1); Sodium 138 mmol/L (137-145)
--- NOTE | 2023-02-08 08:53 | XR ---
EXAMINATION TYPE: XR chest 1V portable DATE OF EXAM: 02/08/2023 COMPARISON: 07/13/2018 HISTORY: Chest pain TECHNIQUE: Single frontal view of the chest is obtained. FINDINGS: There is no focal air space opacity, pleural effusion, or pneumothorax seen. The cardiac silhouette size is within normal limits. The osseous structures are intact. IMPRESSION: 1. No acute process.
--- NOTE | 2023-02-08 08:59 | CT ---
EXAMINATION TYPE: CT brain wo con DATE OF EXAM: 02/08/2023 COMPARISON: 02/20/2019 HISTORY: 32-year-old female CORCORAN and dizziness TECHNIQUE: Examination was done in axial plane without intravenous contrast. Coronal and sagittal r econstructions performed. CT DLP: 980.9 mGycm Automated exposure control for dose reduction was used. FINDINGS: There is no evidence of acute intracranial hemorrhage, acute ischemic changes, mass, mass-effect, or extra-axial fluid collection. There is no effacement of cerebral sulci or basal subarachnoid cister ns. There is no hydrocephalus. There is no midline shift. Reyna-white matter distinction is preserv ed. Partially empty sella incidentally noted, unchanged from prior. Paranasal sinuses and mastoid air cells well pneumatized. Orbits and globes are intact. IMPRESSION: No acute intracranial abnormality seen.
[2023-02-08 10:43] VITALS: BP 112/68; PULSE 74
== END 2023-02-08 10:31 | disposition home or self-care (01) ==
LOC: EC 07:09
DX: R00.2 Palpitations (principal); R51.9 Headache, unspecified; Z90.49 Acquired absence of other specified parts of digestive tract
CPT/HCPCS: 36415; 93005; 80048; 83735; 84484; 85025; 71045; 70450; 99284; 96374; 96375 ×2; 96361; J1200; J2405; J1885